=== PATIENT | female | born 1955 | race Caucasian/White ===

== ENCOUNTER → 2017-09-08 11:08 | Outpatient (CLI) | payer BC, SELFPAY ==
--- NOTE | 2017-09-08 11:23 | EKG12_ITS ---
Test Reason : PRE-OP Blood Pressure : / mmHG Vent. Rate : 060 BPM Atrial Rate : 060 BPM P-R Int : 164 ms QRS Dur : 074 ms QT Int : 396 ms P-R-T Axes : 071 -30 033 degrees QTc Int : 396 ms Normal sinus rhythm Left axis deviation Inferior infarct , age undetermined Abnormal ECG Confirmed by BIGG DYKES, FAN ([id number]), brands editor ANJALI VILLAGOMEZ ([id number] on 09/09/2017 4:01:26 PM Referred By: Gaurang Ramos Confirmed By:FAN PRIDE MD
[2017-09-08 11:38] LABS: Hemoglobin 13.8 g/dl (12.0-15.0); Mean Corp Hgb Conc 31.4 g/gl (32-36); Mean Corpuscular Hgb 31.6 pg (27.0-32.0); Mean Corpuscular Volume 100.7 fL (81-99); Mean Platelet Vol. 10.6 fl (6.2-12.0); Platelet Count 259 K/mm3 (150-450); RBC Distribution Width CV 13.7 % (11.6-14.6); RBC Distribution Width SD 50.5 fl (35.1-43.9); Red Blood Count 4.37 M/mm3 (4.2-5.4); White Blood Count 7.5 K/mm3 (4.4-11.0)
[2017-09-08 11:40] LABS: Scan Indicated on CBC? Y/N NO
[2017-09-08 11:59] LABS: Anion Gap 6 (5-15); BUN 9 mg/dL (7-18); BUN/Creat Ratio 12.5 RATIO (10-20); Calcium,Total 9.3 mg/dL (8.5-10.1); Chloride 105 mmol/L (98-107); Creatinine, Serum 0.72 mg/dL (0.55-1.02); EST Glomerular Filtration Rate 87 mL/min (>60); Est Glom Filt Rate - Afr Amer 106 mL/min (>60); Glucose 94 mg/dL (74-106); Potassium 4.3 mmol/L (3.5-5.1); Sodium Level 141 mmol/L (136-145)
== END ==
PROVIDERS: Family Provider Family Medicine; PCP Family Medicine; Visit Provider Orthopaedic Surgery
DX: Z01.810 Encounter for preprocedural cardiovascular examination (principal); Z01.818 Encounter for other preprocedural examination
CPT/HCPCS: 36415; 80048; 85027; 93005

== ENCOUNTER 2017-10-30 16:44 | Emergency (ER) | payer BC, SELFPAY ==
[2017-10-30 16:45] VITALS: BP 120/80; PULSE 95; RESP 14; TEMP 36.1; O2SAT 96; BMI 29.1
--- NOTE | 2017-10-30 17:03 | EKG12_ITS ---
Test Reason : PALP Blood Pressure : / mmHG Vent. Rate : 090 BPM Atrial Rate : 090 BPM P-R Int : 166 ms QRS Dur : 074 ms QT Int : 362 ms P-R-T Axes : 075 -34 054 degrees QTc Int : 442 ms Normal sinus rhythm Left axis deviation Inferior infarct , age undetermined Abnormal ECG Confirmed by BIGG DYKES, FAN ([id number]), newspaper editor managing ANJALI VILLAGOMEZ ([id number]) on 11/02/2017 2:13:20 PM Referred By: ROMAN Confirmed By:FAN PRIDE MD
--- NOTE | 2017-10-30 17:03 | RAD_ITS ---
STUDY: X-RAY CHEST REASON FOR EXAM: Female, 61 years old. Chest pain TECHNIQUE: PA and lateral views of the chest. COMPARISON: None. FINDINGS: The lungs are clear and expanded. There is no demonstrated pleural abnormality. Normal size heart. Normal mediastinum and kirsten. Normal visualized pulmonary arteries. Normal visualized aortic arch and descending thoracic aorta. Normal visualized thoracic spine. Normal visualized ribs, clavicles, and shoulders. There is no demonstrated abnormality of the visualized soft tissue structures of the upper abdomen. RAD/Chest PA and Lateral IMPRESSION: Normal x-ray examination of the chest. Electronically Signed: Yayo Otto DO at 17:40 EDT Tel , Service support ,
[2017-10-30] MEDS: Aspirin 81 MG TAB.CHEW 324 MG PO (17:11)
[2017-10-30 17:32] LABS: Absolute Neutrophil Count 5.5 X10^3/uL (2.0-7.7); Basophil# 0.04 X10^3/uL; Basophil% 0.5 % (0-1); Eosinophil# 0.19 X10^3/uL; Eosinophils% 2.5 % (0-5); Hematocrit 45.1 % (37-47); Hemoglobin 14.6 g/dl (12.0-15.0); Lymphocyte % 20.8 % (19-41); Mean Corp Hgb Conc 32.4 g/gl (32-36); Mean Corpuscular Hgb 31.8 pg (27.0-32.0); Mean Corpuscular Volume 98.3 fL (81-99); Mean Platelet Vol. 11.2 fl (6.2-12.0); Monocyte# 0.38 X10^3/uL; Monocyte% 4.9 % (0-10); Neutrophil # 5.48 X10^3/uL (2.7-7.7); Platelet Count 242 K/mm3 (150-450); RBC Distribution Width CV 13.2 % (11.6-14.6); RBC Distribution Width SD 47.2 fl (35.1-43.9); Red Blood Count 4.59 M/mm3 (4.2-5.4); White Blood Count 7.7 K/mm3 (4.4-11.0)
[2017-10-30 17:35] LABS: POSITIVE COUNT NO; POSITIVE DIFFERENTIAL NO; POSITIVE MORPHOLOGY NO
[2017-10-30 17:56] LABS: Anion Gap 11 (5-15); BUN 8 mg/dL (7-18); BUN/Creat Ratio 11.7 RATIO (10-20); Calcium,Total 9.7 mg/dL (8.5-10.1); Chloride 105 mmol/L (98-107); Creatinine, Serum 0.68 mg/dL (0.55-1.02); EST Glomerular Filtration Rate 92 mL/min (>60); Est Glom Filt Rate - Afr Amer 112 mL/min (>60); Estimated Creatinine Clearance 67.84 ml/min; Glucose 86 mg/dL (74-106); Sodium Level 139 mmol/L (136-145)
--- NOTE | 2017-10-30 18:25 | ED.VISSUMM ---
- ER Visit Summary Date of Service: 10/30/17 Chief Complaint: Dizzy History of Present Illness: The patient is a 61 F who presents with dizziness. She states it initially began about 1 hour ago. It lasted 45 minutes and then resolved. She describes this as near syncope. She has a sensation of her heart racing. She used a blood pressure cuff at home and her heart rate reading was in the 180s. This then resolved on its own about the time of presentation here to the emergency department. The patient does have a history of supraventricular tachycardia. She had associated chest tightness and shortness of breath during this episode but this has since resolved. She has a history of SVT which has converted with adenosine but has also had a previous [place] with a single stent to the right coronary artery. Physical Examination: Afebrile vitals are stable Moist mucous members Heart regular rate and rhythm Lungs are clear Abdomen soft 2+ symmetric radial pulses Test Results: EKG shows normal sinus rhythm at a rate of 90. Laboratory studies including troponin unremarkable. Chest x-ray normal. Emergency Department Course and Treatment: Patient's workup is unremarkable here she has remained in normal sinus rhythm during cardiac monitoring. She did have a heart cath in June of this year which showed mild irregularities and a patent stent. Did speak to Dr. Rios who felt the patient could be safely discharged home to follow-up as an outpatient. We will increase her metoprolol from 12-1/2 mg twice daily to 25 mg twice daily. Patient understands return for new or worsening symptoms and was instructed on specific signs and symptoms to monitor for and was discharged home. Treatment Plan: [] Disposition: Discharge Impression: Palpitations Chest pain This note was generated with [employer] dictation software. It may contain incorrect words, spelling, and punctuation that were not noted in review of the chart prior to signing ED Disposition - Plan for ED Patient: Chief Complaint: Palpitations Referrals: Bonifacio Loya MD [Primary Care Provider] -
--- NOTE | 2017-10-30 18:29 | ED.DCSUM_ITS ---
- ER Visit Summary Date of Service: 10/30/17 Chief Complaint: Dizzy History of Present Illness: The patient is a 61 F who presents with dizziness. She states it initially began about 1 hour ago. It lasted 45 minutes and then resolved. She describes this as near syncope. She has a sensation of her heart racing. She used a blood pressure cuff at home and her heart rate reading was in the 180s. This then resolved on its own about the time of presentation here to the emergency department. The patient does have a history of supraventricular tachycardia. She had associated chest tightness and shortness of breath during this episode but this has since resolved. She has a history of SVT which has converted with adenosine but has also had a previous [place] with a single stent to the right coronary artery. Physical Examination: Afebrile vitals are stable Moist mucous members Heart regular rate and rhythm Lungs are clear Abdomen soft 2+ symmetric radial pulses Test Results: EKG shows normal sinus rhythm at a rate of 90. Laboratory studies including troponin unremarkable. Chest x-ray normal. Emergency Department Course and Treatment: Patient's workup is unremarkable here she has remained in normal sinus rhythm during cardiac monitoring. She did have a heart cath in June of this year which showed mild irregularities and a patent stent. Did speak to Dr. Rios who felt the patient could be safely discharged home to follow-up as an outpatient. We will increase her metoprolol from 12-1/2 mg twice daily to 25 mg twice daily. Patient understands return for new or worsening symptoms and was instructed on specific signs and symptoms to monitor for and was discharged home. Treatment Plan: [] Disposition: Discharge Impression: Palpitations Chest pain This note was generated with [employer] dictation software. It may contain incorrect words, spelling, and punctuation that were not noted in review of the chart prior to signing ED Disposition - Plan for ED Patient: Chief Complaint: Palpitations Referrals: Bonifacio Loya MD [Primary Care Provider] -
--- NOTE | 2017-10-30 18:29 | ED.DEP ---
ED Disposition - Plan for ED Patient: Chief Complaint: Palpitations Instructions: ED Tachycardia Pat PSVT Referrals: Bonifacio Loya MD [Primary Care Provider] - Jeromy Day MD [STAFF PHYSICIAN] -
[2017-10-30 18:38] VITALS: BP 138/94; PULSE 85; RESP 16; O2SAT 96
== END 2017-10-30 18:38 | disposition home or self-care (01) ==
LOC: ED 17:34
PROVIDERS: Emergency Provider Emergency Medicine; Family Provider Family Medicine; PCP Family Medicine
DX: R00.2 Palpitations (principal); R07.9 Chest pain, unspecified; I25.10 Atherosclerotic heart disease of native coronary artery without angina pectoris; I10 Essential (primary) hypertension; I47.1 Supraventricular tachycardia; I25.2 Old myocardial infarction; Z79.82 Long term (current) use of aspirin; Z79.02 Long term (current) use of antithrombotics/antiplatelets; Z79.899 Other long term (current) drug therapy
CPT/HCPCS: 71046; 80048; 84484; 85025; 93005; 99285

== ENCOUNTER → 2017-12-07 10:23 | Outpatient (CLI) | payer BC, SELFPAY ==
--- NOTE | 2017-12-07 10:23 | DT_ITS ---
This patient was seen during an EMR downtime November 30, 2017 - December 07, 2017. This patient may have a combination of paper and electronic documentation or all paper documentation. All documentation is viewable within the e-chart portion of [employer] for each patient visit.
--- NOTE | 2017-12-07 10:23 | DT_ITS ---
This patient was seen during an EMR downtime November 30, 2017 - December 07, 2017. This patient may have a combination of paper and electronic documentation or all paper documentation. All documentation is viewable within the e-chart portion of [employer] for each patient visit.
[2017-12-07 10:50] LABS: Absolute Lymphocyte Count 1.59 X10^3/ul (0.83-4.51); Absolute Neutrophil Count 4.2 X10^3/uL (2.0-7.7); Basophil# 0.03 X10^3/uL; Basophil% 0.5 % (0-1); Hematocrit 41.6 % (37-47); Hemoglobin 13.4 g/dl (12.0-15.0); Lymphocyte # 1.59 X10^3/ul (4.0); Lymphocyte % 23.9 % (19-41); Mean Corp Hgb Conc 32.2 g/gl (32-36); Mean Corpuscular Hgb 32.4 pg (27.0-32.0); Mean Corpuscular Volume 100.7 fL (81-99); Mean Platelet Vol. 10.7 fl (6.2-12.0); Monocyte# 0.38 X10^3/uL; Monocyte% 5.7 % (0-10); Neutrophil # 4.22 X10^3/uL (2.7-7.7); Neutrophil % 63.6 % (47-70); POSITIVE COUNT NO; POSITIVE DIFFERENTIAL NO; POSITIVE MORPHOLOGY NO; Platelet Count 217 K/mm3 (150-450); RBC Distribution Width SD 47.4 fl (35.1-43.9); Red Blood Count 4.13 M/mm3 (4.2-5.4); White Blood Count 6.6 K/mm3 (4.4-11.0)
[2017-12-07 11:16] LABS: ALB/GLOB Ratio 1.1 RATIO (0.9-2.4); AST(SGOT) 23 U/L (15-37); Alanine Aminotransfer ALT/SGPT 34 U/L (13-56); Albumin, Serum 3.9 g/dL (3.2-5.0); Alkaline Phosphatase 115 U/L (45-117); Anion Gap 5 (5-15); BUN 8 mg/dL (7-18); BUN/Creat Ratio 11.7 RATIO (10-20); Bilirubin, Direct 0.19 mg/dL (0.00-0.30); Chloride 108 mmol/L (98-107); Cholesterol 140 mg/dL (200); Creatinine, Serum 0.68 mg/dL (0.55-1.02); EST Glomerular Filtration Rate 92 mL/min (>60); Est Glom Filt Rate - Afr Amer 112 mL/min (>60); Globulin 3.5 g/dL (2.2-4.2); Glucose 99 mg/dL (74-106); High Density Lipoprotein 63 mg/dL; Potassium 4.2 mmol/L (3.5-5.1); Protein, Total 7.4 g/dL (6.4-8.2); Sodium Level 141 mmol/L (136-145); Triglycerides 103 mg/dL; Very Low Density Lipoprotein 21 mg/dL (5-40)
== END ==
PROVIDERS: Family Provider Family Medicine; PCP Family Medicine; Visit Provider Internal Medicine Cardiovascular Disease
DX: I25.10 Atherosclerotic heart disease of native coronary artery without angina pectoris (principal)
CPT/HCPCS: 36415; 80053; 80061; 82248; 85025

== ENCOUNTER → 2018-03-25 06:55 | Outpatient (CLI) | payer BC, SELFPAY ==
--- NOTE | 2018-03-25 09:43 | STRESSREP_ITS ---
Stress Test Report Date: 03/25/2018 Procedure: Exercise tolerance test/imaging study Indications: Chest pain my: CAD; PCI Consent: Per the patient Procedure: The patient exercised on a Steven protocol for 6 minutes completing Stage II achieving a peak heart rate of 146 bpm (92 % predicted maximal heart rate) with a peak blood pressure 140/80 mmHg and a peak MET capacity of 7 METs. The baseline ECG demonstrated normal sinus rhythm. The peak exercise ECG demonstrated no obvious ECG changes. There was a rare PVC during pretest and during exercise. The functional capacity was considered average. There was dyspnea associated with vague chest discomfort during exercise with spontaneous resolution in recovery. The examination was discontinued secondary to dyspnea. Impression: 1. Technically adequate (percent predicted maximal heart rate greater than 85%) exercise tolerance test 2. Peak exercise ECG with no obvious ECG change 3. There was a rare PVC during pretest and during exercise. 4. Nuclear images pending Myocardial perfusion imaging study: Technique: The patient was injected with 11.4 mCi of technetium 99m Cardiolite and sub sequently rest SPECT Cardiolite nuclear imaging was obtained in the horizontal long, vertical long, and short axis views. The patient exercised on a Steven protocol for 6 minutes completing Stage II achieving a peak heart rate of 146 bpm (92 % predicted maximal heart rate) with a peak blood pressure 140/80 mmHg and a peak MET capacity of 7 METs. The patient was injected with 33.2 mCi of technetium 99m Cardiolite and subsequently stress SPECT Cardiolite nuclear imaging was obtained in the horizontal long, vertical long, and short axis views. A gated Cardiolite study at peak stress was obtained. Interpretation: Rest and stress SPECT Cardiolite nuclear imaging status post realignment, normalization, and attenuation correction, demonstrates the appearance of extracardiac/gastrointestinal tracer uptake near the inferior segments. Both pre-attenuation and post attenuation images demonstrate an area of diminished tracer uptake in portions of the distal anterolateral segments at rest which appears to improve/normalize following stress. There are no myocardial perfusion deficits noted on the stress polar map images. There is end systolic thickening and brightening. The gated Cardiolite study demonstrates myocardial thickening and inward wall motion. The reported LVEF is 97 %. Impression: 1. Rest and stress SPECT Cardiolite nuclear imaging demonstrate extracardiac/gastrointestinal tracer uptake near the inferior segments and resting myocardial perfusion changes which appear to improve/normalize following stress appearing compatible shifting soft tissue attenuation/artifact with no myocardial perfusion changes considered diagnostic for associated stress-induced myocardial ischemia. 2. The gated Cardiolite study reports an LVEF of 97 %. This note was generated with [employer] software. It may contain incorrect words, spelling, and punctuation that were not noted in checking the note before signing.
== END ==
PROVIDERS: Family Provider Family Medicine; PCP Family Medicine; Referring Provider Internal Medicine Cardiovascular Disease; Visit Provider Internal Medicine Cardiovascular Disease
DX: R07.9 Chest pain, unspecified (principal); I25.10 Atherosclerotic heart disease of native coronary artery without angina pectoris; Z95.5 Presence of coronary angioplasty implant and graft
CPT/HCPCS: 78452; 93017; A9500; A4216

== ENCOUNTER 2018-12-09 17:45 | Emergency (ER) | payer BC, SELFPAY ==
[2018-12-09] VITALS (7 sets, daily range): BP systolic 122–161; BP diastolic 73–105; PULSE 61–78; RESP 13–16; TEMP 36.7; O2SAT 96–100; BMI 31.6
--- NOTE | 2018-12-09 18:09 | EKG12_ITS ---
Test Reason : CP Blood Pressure : / mmHG Vent. Rate : 073 BPM Atrial Rate : 073 BPM P-R Int : 174 ms QRS Dur : 078 ms QT Int : 390 ms P-R-T Axes : 076 -32 046 degrees QTc Int : 429 ms Normal sinus rhythm Left axis deviation Inferior infarct (cited on or before 08-SEP-2017) Abnormal ECG Confirmed by LAURENT PULLIAM ([id number]), editor city PATRICIA SAUNDERS ([id number]) on 12/13/2018 1:25:42 PM Referred By: KIMI/KAIT Confirmed By:JELANI PULLIAM
--- NOTE | 2018-12-09 18:10 | RAD_ITS ---
STUDY: X-RAY CHEST REASON FOR EXAM: Female, 63 years old. Substernal chest pain TECHNIQUE: Single AP portable view of the chest. COMPARISON: 10/30/2017 FINDINGS: EKG leads overlie the chest The lungs are clear and expanded. There is no demonstrated pleural abnormality. Normal size heart. Normal mediastinum and kirsten. Normal visualized pulmonary arteries. Normal visualized aortic arch and descending thoracic aorta. Normal visualized thoracic spine. Normal visualized ribs, clavicles, and shoulders. There is no demonstrated abnormality of the visualized soft tissue structures of the upper abdomen. RAD/Chest 1 View (Portable) IMPRESSION: Normal x-ray examination of the chest. Electronically Signed: Krish Wolf MD at 18:25 EDT , Service support ,
[2018-12-09 18:26] LABS: Absolute Neutrophil Count 4.4 X10^3/uL (2.0-7.7); Basophil# 0.03 X10^3/uL; Basophil% 0.4 % (0-1); Eosinophil# 0.22 X10^3/uL; Eosinophils% 2.8 % (0-5); Hematocrit 44.5 % (37-47); Hemoglobin 14.7 g/dl (12.0-15.0); Lymphocyte % 33.1 % (19-41); Mean Corpuscular Volume 96.7 fL (81-99); Mean Platelet Vol. 11.3 fl (6.2-12.0); Monocyte# 0.59 X10^3/uL; Monocyte% 7.5 % (0-10); Neutrophil # 4.39 X10^3/uL (2.7-7.7); Neutrophil % 55.8 % (47-70); POSITIVE COUNT NO; POSITIVE DIFFERENTIAL NO; POSITIVE MORPHOLOGY NO; Platelet Count 224 K/mm3 (150-450); RBC Distribution Width CV 13.1 % (11.6-14.6); RBC Distribution Width SD 45.2 fl (35.1-43.9); White Blood Count 7.9 K/mm3 (4.4-11.0)
[2018-12-09 18:27] LABS: Prothrombin Time (Protime)PT. 12.5 SECONDS (11.7-14.9)
[2018-12-09] MEDS: Aspirin 81 MG TAB.CHEW 243 MG PO (18:34)
[2018-12-09] MEDS: 0.9% Normal Saline 1,000 ML 150 ML IV (18:35)
[2018-12-09 18:38] LABS: Anion Gap 4 (5-15); BUN 9 mg/dL (7-18); BUN/Creat Ratio 11.6 RATIO (10-20); Calcium,Total 9.2 mg/dL (8.5-10.1); Chloride 106 mmol/L (98-107); Creatinine, Serum 0.78 mg/dL (0.55-1.02); EST Glomerular Filtration Rate 80 mL/min (>60); Est Glom Filt Rate - Afr Amer 96 mL/min (>60); Estimated Creatinine Clearance 57.63 ml/min; Glucose 102 mg/dL (74-106); Potassium 3.6 mmol/L (3.5-5.1); Sodium Level 135 mmol/L (136-145)
--- NOTE | 2018-12-09 21:00 | EKG12_ITS ---
Test Reason : REPEAT Blood Pressure : / mmHG Vent. Rate : 062 BPM Atrial Rate : 062 BPM P-R Int : 180 ms QRS Dur : 076 ms QT Int : 428 ms P-R-T Axes : 074 -30 024 degrees QTc Int : 434 ms Normal sinus rhythm Left axis deviation Inferior infarct , age undetermined Abnormal ECG Confirmed by LAURENT PULLIAM ([id number]), editor in chief newspaper PATRICIA SAUNDERS ([id number]) on 12/13/2018 1:25:08 PM Referred By: Confirmed By:JELANI PULLIAM
--- NOTE | 2018-12-09 22:01 | ED.VISSUMM ---
- ER Visit Summary Date of Service: 12/09/18 Chief Complaint: Chest pain History of Present Illness: The patient is a 63 F with history of OR in 2017 with a stent to the RCA. Patient still on Brilinta. Patient reports having intermittent chest tightness since she had her OR. She had 2 stress test and one cath since her heart attack that did not show any further significant disease. Patient states tonight after watching a movie her chest seem more tight than normal. It is across the center of her chest. She reported slightly more shortness of breath than normal. She did not break out in a sweat. Physical Examination: Blood pressure is 161/88, otherwise vitals normal. Patient sitting upright in bed no acute distress. Head and neck examination normal. Heart is regular rate and rhythm. Lung sounds are clear. Abdomen is soft nontender. Lower extremity examination is unremarkable with no significant edema. Test Results: EKG is sinus at 73 with no acute ischemia. Portable chest x-ray unremarkable. CBC and chemistry studies normal. Troponin is less than 0.015. Emergency Department Course and Treatment: Patient was given 3 additional baby aspirin on arrival as she is only taken one this morning. On review of records patient had a nuclear stress test in February 2018 here that was unremarkable. She had a heart cath in June 2017 that showed mild irregularities only. Test results were discussed with the patient. We used shared decision-making to decide on 3-hour repeat EKG and troponin. Repeat EKG is unchanged and repeat troponin remains less than 0.015. At this time patient is comfortable with discharge to home and will follow with her hearing aid mechanic. Treatment Plan: [] Disposition: Discharge Impression: Chest pain This note was generated with [employer] dictation software. It may contain incorrect words, spelling, and punctuation that were not noted in review of the chart prior to signing ED Disposition - Plan for ED Patient: Disposition: Home or Assisted Living Instructions: ED Chest Pain Atypical Unkn Cause Referrals: Jany Gilliam DO [Primary Care Provider] - Jeromy Day MD [STAFF PHYSICIAN] - As soon as possible
--- NOTE | 2018-12-09 22:04 | ED.DCSUM_ITS ---
- ER Visit Summary Date of Service: 12/09/18 Chief Complaint: Chest pain History of Present Illness: The patient is a 63 F with history of [place] in 2017 with a stent to the RCA. Patient still on Brilinta. Patient reports having intermittent chest tightness since she had her IL. She had 2 stress test and one cath since her heart attack that did not show any further significant disease. Patient states tonight after watching a movie her chest seem more tight than normal. It is across the center of her chest. She reported slightly more shortness of breath than normal. She did not break out in a sweat. Physical Examination: Blood pressure is 161/88, otherwise vitals normal. Patient sitting upright in bed no acute distress. Head and neck examination normal. Heart is regular rate and rhythm. Lung sounds are clear. Abdomen is soft nontender. Lower extremity examination is unremarkable with no significant edema. Test Results: EKG is sinus at 73 with no acute ischemia. Portable chest x-ray unremarkable. CBC and chemistry studies normal. Troponin is less than 0.015. Emergency Department Course and Treatment: Patient was given 3 additional baby aspirin on arrival as she is only taken one this morning. On review of records patient had a nuclear stress test in February 2018 here that was unremarkable. She had a heart cath in June 2017 that showed mild irregularities only. Test results were discussed with the patient. We used shared decision-making to decide on 3-hour repeat EKG and troponin. Repeat EKG is unchanged and repeat troponin remains less than 0.015. At this time patient is comfortable with discharge to home and will follow with her spring assembler. Treatment Plan: [] Disposition: Discharge Impression: Chest pain This note was generated with [employer] dictation software. It may contain incorrect words, spelling, and punctuation that were not noted in review of the chart prior to signing ED Disposition - Plan for ED Patient: Disposition: Home or Assisted Living Instructions: ED Chest Pain Atypical Unkn Cause Referrals: Jany Gilliam DO [Primary Care Provider] - Jeromy Day MD [STAFF PHYSICIAN] - As soon as possible
== END 2018-12-09 22:07 | disposition home or self-care (01) ==
PROVIDERS: Emergency Provider Emergency Medicine; Family Provider Family Medicine; PCP Family Medicine
DX: R07.9 Chest pain, unspecified (principal); I25.10 Atherosclerotic heart disease of native coronary artery without angina pectoris; I10 Essential (primary) hypertension; G47.33 Obstructive sleep apnea (adult) (pediatric); K21.9 Gastro-esophageal reflux disease without esophagitis; Z79.02 Long term (current) use of antithrombotics/antiplatelets; Z79.82 Long term (current) use of aspirin; Z79.899 Other long term (current) drug therapy; I25.2 Old myocardial infarction; Z87.891 Personal history of nicotine dependence; Z95.5 Presence of coronary angioplasty implant and graft
CPT/HCPCS: 71045; 80048; 84484; 85025; 85610; 93005; 96360; 96361; 99284; J7030; A4216

== ENCOUNTER 2020-09-13 15:06 | Outpatient (RCR) | payer MEDICARE, OTHER, SELFPAY ==
[2020-06-19 11:41] VITALS: BMI 32.0
[2020-09-13] MEDS: COVID-19 VACC, MRNA(PFIZER)/PF 30 MCG/0.3 ML SYRINGE IM (13:28)
[2020-10-04] MEDS: COVID-19 VACC, MRNA(PFIZER)/PF 30 MCG/0.3 ML SYRINGE IM (13:19)
== END 2020-09-13 23:59 ==
LOC: IMMUN 15:06
PROVIDERS: PCP Family Medicine; Visit Provider Family Medicine
DX: Z23 Encounter for immunization (principal)
CPT/HCPCS: 0001A; 0002A; 91300

== ENCOUNTER → 2021-02-25 14:34 | Outpatient (CLI) | payer MEDICARE, OTHER, SELFPAY ==
[2021-02-25 18:04] LABS: Hemoglobin 14.1 g/dL (12.0-15.0); Mean Corp Hgb Conc 32.8 g/dL (32-36); Mean Corpuscular Hgb 35.3 pg (27.0-32.0); Mean Corpuscular Volume 107.5 fL (81-99); Mean Platelet Vol. 10.9 fl (6.2-12.0); Platelet Count 199 K/mm3 (150-450); RBC Distribution Width CV 12.8 % (11.6-14.6); RBC Distribution Width SD 50.8 fl (35.1-43.9); White Blood Count 6.6 K/mm3 (4.4-11.0)
[2021-02-25 19:05] LABS: AST(SGOT) 224 U/L (15-37); Alanine Aminotransfer ALT/SGPT 101 U/L (13-56); Albumin, Serum 3.8 g/dL (3.2-5.0); Alkaline Phosphatase 144 U/L (45-117); Bilirubin, Direct 0.37 mg/dL (0.00-0.30); GGTP 896 U/L (5-55); Globulin 4.1 g/dL (2.2-4.2); Protein, Total 7.9 g/dL (6.4-8.2)
[2021-02-26 09:21] LABS: Hepatitis B Surface Antigen Non-Reactive (Nonreactive); Hepatitis C Antibody Non-Reactive (Nonreactive)
[2021-02-27 16:36] LABS: ANTINUCLEAR ANTIBODIES DIRECT Negative (Negative); Anti-Smooth Muscle ABS 18 Units (0-19)
== END ==
PROVIDERS: PCP Family Medicine; Referring Provider Internal Medicine Gastroenterology; Visit Provider Internal Medicine Gastroenterology
DX: R19.7 Diarrhea, unspecified (principal); K75.9 Inflammatory liver disease, unspecified
CPT/HCPCS: 36415; 80076; 82977; 83516; 85027; 86038; 86140; 86803; 87340

== ENCOUNTER → 2021-03-13 08:41 | Outpatient (CLI) | payer MEDICARE, OTHER, SELFPAY ==
--- NOTE | 2021-03-13 08:44 | US_ITS ---
STUDY: ABDOMINAL ULTRASOUND - RIGHT UPPER QUADRANT REASON FOR VISIT: Female, 65 years old FATTY LIVER TECHNIQUE: Ultrasound evaluation of the right upper quadrant was performed with real-time and static soliz-scale imaging. TECHNICAL QUALITY: Adequate. COMPARISON: None. FINDINGS: Liver: The liver measures 17.1 cm. There is increased echogenicity consistent with fatty infiltration. The bile ducts are within normal limits. There is hepatic color flow. The direction of portal flow is hepatopetal. There is no demonstrated mass lesion. Gallbladder: The patient is status post cholecystectomy. Common Bile Duct (C.B.D.): The common bile duct measures 5 mm. Pancreas: Normal size of the head, body and tail of the pancreas. There is normal echogenicity of the pancreas. There is no demonstrated pancreatic mass or cyst. Right Kidney: Normal size of the right kidney. The right kidney measures 10.4 cm x 5 cm x 4 cm. Normal renal cortex. The right cortex measures 1.5 cm. There is no demonstrated renal mass or cyst. There is no right hydronephrosis. IMPRESSION: Fatty infiltration of the liver. Status post cholecystectomy. Electronically Signed: Rob Russo MD at 13:59 EDT , Service support , STUDY: ABDOMINAL ULTRASOUND - ELASTOGRAPHY REASON FOR VISIT: Female, 65 years old. Fatty infiltration of the liver. TECHNIQUE: Liver stiffness measurements were obtained on a SCRM 85 ultrasound machine using a CA 1-7 probe following the SRU guidelines. 3 measurements were obtained using a 2-D-SWE method. The IQR/M was 10% suggesting a quality data set. TECHNICAL QUALITY: Adequate. COMPARISON: Comparison is made with prior study done earlier in the day. FINDINGS: Liver: There is diffuse fatty infiltration of the liver. Median liver stiffness measured 13 kPa. US/Abdomen Limited IMPRESSION: Liver stiffness measures 13 kPa compatible with F3 Metavir score. Electronically Signed: Rob Russo MD at 14:03 EDT , Service support ,
== END ==
PROVIDERS: PCP Family Medicine; Referring Provider Internal Medicine Gastroenterology; Visit Provider Internal Medicine Gastroenterology
DX: K76.0 Fatty (change of) liver, not elsewhere classified (principal)
CPT/HCPCS: 76705; 76981

== ENCOUNTER 2021-07-12 14:20 | Outpatient (CLI) | payer MEDICARE, OTHER, SELFPAY ==
[2021-07-12 17:32] LABS: Absolute Lymphocyte Count 1.35 X10^3/uL (0.83-4.51); Absolute Neutrophil Count 6.6 X10^3/uL (2.0-7.7); Basophil# 0.04 X10^3/uL; Basophil% 0.5 % (0-1); Eosinophil# 0.07 X10^3/uL; Eosinophils% 0.8 % (0-5); Hematocrit 43.4 % (37-47); Hemoglobin 13.7 g/dL (12.0-15.0); Lymphocyte # 1.35 X10^3/ul (0.83-4.51); Lymphocyte % 15.8 % (19-41); Mean Corp Hgb Conc 31.6 g/dL (32-36); Mean Corpuscular Hgb 34.8 pg (27.0-32.0); Mean Corpuscular Volume 110.2 fL (81-99); Mean Platelet Vol. 11.7 fl (6.2-12.0); Monocyte# 0.45 X10^3/uL; Monocyte% 5.3 % (0-10); NRBC Flagged by Analyzer 0 % (0-5); Neutrophil % 77.1 % (47-70); Platelet Count 312 K/mm3 (150-450); RBC Distribution Width CV 13.3 % (11.6-14.6); RBC Distribution Width SD 55.4 fl (35.1-43.9); Red Blood Count 3.94 M/mm3 (4.2-5.4); White Blood Count 8.6 K/mm3 (4.4-11.0)
[2021-07-12 17:43] LABS: ALB/GLOB Ratio 0.8 RATIO (0.9-2.4); AST(SGOT) 74 U/L (15-37); Alanine Aminotransfer ALT/SGPT 67 U/L (13-56); Albumin, Serum 3.4 g/dL (3.2-5.0); Alkaline Phosphatase 224 U/L (45-117); Anion Gap 8 (5-15); BUN 5 mg/dL (7-18); BUN/Creat Ratio 11.3 RATIO (10-20); Calcium,Total 9.9 mg/dL (8.5-10.1); Chloride 102 mmol/L (98-107); Creatinine, Serum 0.44 mg/dL (0.55-1.02); EST Glomerular Filtration Rate 151 mL/min (>60); Est Glom Filt Rate - Afr Amer 183 mL/min (>60); Globulin 4.4 g/dL (2.2-4.2); Glucose 92 mg/dL (74-106); Protein, Total 7.8 g/dL (6.4-8.2); Rheumatoid Factor < 10.0 IU/mL (<15); Sodium Level 137 mmol/L (136-145)
[2021-07-15 09:29] LABS: Hepatitis B Surface Antibody Non-Reactive; Hepatitis B Surface Antigen Non-Reactive (Nonreactive); Hepatitis C Antibody Non-Reactive (Nonreactive)
[2021-07-17 00:07] LABS: QNTFERON TB Mitogen Value 4.71 IU/mL (.); QNTFERON TB Nil Value 0 IU/mL (.); QNTFERON TB1+ Ag Value 0 IU/mL (.); QNTFERON TB2+ Ag Value 0 IU/mL (.)
[2021-07-17 08:28] LABS: CCP IgG Antibodies 20 units (0-19); QNTIFERON TB Positive Criteria Negative (Negative)
== END 2021-07-12 23:59 | disposition short-term general hospital (02) ==
LOC: MTLAB 14:22
PROVIDERS: PCP Family Medicine; Referring Provider Internal Medicine Rheumatology; Visit Provider Internal Medicine Rheumatology
DX: M05.79 Rheumatoid arthritis with rheumatoid factor of multiple sites without organ or systems involvement (principal); M79.7 Fibromyalgia; I25.10 Atherosclerotic heart disease of native coronary artery without angina pectoris; K21.9 Gastro-esophageal reflux disease without esophagitis; E78.5 Hyperlipidemia, unspecified; F32.A Depression, unspecified; H93.13 Tinnitus, bilateral; Z95.5 Presence of coronary angioplasty implant and graft
CPT/HCPCS: 36415; 80053; 85025; 86200; 86431; 86480; 86706; 86803; 87340

== ENCOUNTER 2021-08-13 11:14 | Outpatient (CLI) | payer MEDICARE, OTHER, SELFPAY ==
--- NOTE | 2021-08-13 11:18 | RAD_ITS ---
STUDY: X-RAY CHEST REASON FOR EXAM: Female, 65 years old. Fever and cough TECHNIQUE: PA and lateral views of the chest. COMPARISON: None. FINDINGS: The lungs are clear and expanded. There is no demonstrated pleural abnormality. Normal size heart. Normal mediastinum and kirsten. Normal visualized pulmonary arteries. Normal visualized aortic arch and descending thoracic aorta. Normal visualized thoracic spine. There is degenerative osteoarthritis of the bilateral shoulders. There is no demonstrated abnormality of the visualized soft tissue structures of the upper abdomen. RAD/Chest PA and Lateral IMPRESSION: No acute pulmonary process Electronically Signed: Krish Wolf MD at 17:31 EST ,
== END 2021-08-13 23:59 | disposition home or self-care (01) ==
LOC: MTRAD 11:17
PROVIDERS: PCP Family Medicine; Referring Provider Internal Medicine Rheumatology; Visit Provider Internal Medicine Rheumatology
DX: M05.79 Rheumatoid arthritis with rheumatoid factor of multiple sites without organ or systems involvement (principal); M79.7 Fibromyalgia; I25.10 Atherosclerotic heart disease of native coronary artery without angina pectoris; K21.9 Gastro-esophageal reflux disease without esophagitis; E78.5 Hyperlipidemia, unspecified; F32.A Depression, unspecified; H93.13 Tinnitus, bilateral; K76.0 Fatty (change of) liver, not elsewhere classified
CPT/HCPCS: 71046

== ENCOUNTER 2021-10-16 13:15 | Outpatient (CLI) | payer MEDICARE, OTHER, SELFPAY ==
--- NOTE | 2021-10-16 15:15 | NEURO_ITS ---
NCS and/or EMG Patient Report Ordering Doctor: Robbin Mcgregor DATE OF SERVICE: 10/16/21 Laurence presents for electrodiagnostic testing of the upper limbs. She complains of numbness and tingling in the hands, primarily the fingertips. She reports a history of rheumatoid arthritis. Electrodiagnostic findings: Right median motor nerve demonstrates normal distal latency, amplitude with borderline reduced conduction velocity. Left median motor nerve demonstrates normal distal latency and amplitude with borderline reduced conduction velocity. Ulnar motor responses within normal limits bilaterally. Normal median and ulnar F waves. Mildly prolonged median sensory latency at the right wrist. Prolonged left median sensory latency at the wrist. Normal median palmar latency bilaterally. Normal ulnar and radial sensory responses. On needle EMG, all muscles tested in the upper limbs showed no evidence of denervation with normal motor unit action potentials. Electrodiagnostic impression: This is an abnormal study in the upper limbs 1. Electrodiagnostic findings are suggestive of bilateral median monon europathy, consistent with a mild bilateral carpal tunnel syndrome.
== END 2021-10-16 23:59 | disposition home or self-care (01) ==
LOC: PSN 13:17
PROVIDERS: PCP Family Medicine; Referring Provider Psychiatry & Neurology Neurology; Visit Provider Psychiatry & Neurology Neurology
DX: G56.03 Carpal tunnel syndrome, bilateral upper limbs (principal); G62.9 Polyneuropathy, unspecified
CPT/HCPCS: 95886; 95913

== ENCOUNTER → 2021-10-28 | Outpatient (CLI) | payer MEDICARE, OTHER, SELFPAY ==
--- NOTE | 2021-10-28 14:03 | NEURO ---
NCS and/or EMG Patient Report Ordering Doctor: Robbin Mcgregor DATE OF SERVICE: 10/28/21 Indication: Bilateral lower extremity numbness that has been present since June 2021. The upper extremities were evaluated previously and were reported separately. Findings: Nerve conduction studies were performed in the right and left lower extremities. The right peroneal motor study recording the extensor digitorum brevis showed a normal amplitude, normal distal latency and normal conduction velocity. No conduction block or focal slowing was present across the fibular neck. The right tibial motor study recording the abductor hallucis brevis showed a normal amplitude, normal distal latency and normal conduction velocity. Right sural sensory response showed a normal amplitude and conduction velocity. Right superficial peroneal sensory response showed a normal amplitude and borderline conduction velocity. Right medial plantar sensory response could not be obtained due to movement artifact. The left peroneal motor study recording the extensor digitorum brevis showed a normal amplitude, normal distal latency and borderline conduction velocity (however, supramaximal stimulation was not achieved). No conduction block or focal slowing was present across the fibular neck. The left tibial motor study recording the abductor hallucis brevis showed a normal amplitude, normal distal latency and normal conduction velocity. Left sural sensory response showed a normal amplitude and conduction velocity. Left superficial peroneal sensory response showed a normal amplitude and borderline conduction velocity. Left medial plantar sensory response could not be obtained due to movement artifact. Needle EMG of the left lower extremity and paraspinal muscles was performed. No denervation was present in any muscle. Activation was limited in the medial gastrocnemius muscle. Motor unit morphology, activation, and recruitment patterns were otherwise normal. Impression: This is a normal study. There is no electrophysiologic evidence of peripheral neuropathy. In addition, there was no electrophysiologic evidence of lumbar radiculopathy in the left lower extremity. Please note: routine nerve conduction studies and needle EMG assess the larger, myelinated motor and sensory fibers. Thus, routine electrodiagnostic studies may be insensitive in detecting a peripheral neuropathy restricted to small fibers alone (i.e., pain, temperature and autonomic fibers). However, most peripheral neuropathies with predominantly small fiber large dysfunction will also involve large fibers to a lesser extent, and will demonstrate abnormalities on electrodiagnostic studies. Thus, clinical correlation is required in the interpretation of this negative electrodiagnostic study if an isolated small fiber neuropathy is considered. Ilia Santacruz D.O. Multi Select Codes Neurology Neurology Interp Codes: 21749-81 Musc test done w/n test comp (interp) and 42275-26 Nrv cndj test 9-10 studies (interp)
== END | disposition home or self-care (01) ==
PROVIDERS: PCP Family Medicine; Referring Provider Psychiatry & Neurology Neurology; Visit Provider Psychiatry & Neurology Neurology
DX: G56.03 Carpal tunnel syndrome, bilateral upper limbs (principal); G62.9 Polyneuropathy, unspecified
CPT/HCPCS: 95886; 95911

== ENCOUNTER 2021-12-20 02:45 | Inpatient (IN) | payer MEDICARE, OTHER, SELFPAY ==
[2021-12-20 02:01] VITALS: BMI 26.6
[2021-12-20 02:24] VITALS: BP 102/60; PULSE 92; RESP 16; TEMP 36.3; O2SAT 93
--- NOTE | 2021-12-20 02:52 | HP.PCM.HOS_ITS ---
HPI - General General Date of Admission: 12/20/21 Date of Service: 12/20/21 Chief Complaint: weight loss, debility HPI Narrative CALIN ANGUIANO, is a 66 F who presents presents with a several month history of unintentional weight loss. Patient has lost roughly 50 pounds. Things have gotten worse over the past couple weeks where the patient is having early satiety eating very little perhaps up to 200 barrie/day and drinking less. Perhaps drinking 20 ounces of water per day. They were concerned and brought the patient to and [facility] emergency room. Patient had lab work and a CAT scan that was concerning for acute pancreatitis and acute kidney injury. They were unable to get the patient admitted to the main campus at [place] or at their local hospital said the patient and her family agreed to go to [place]. Additionally, patient has had increased abdominal distention which has caused her discomfort. Since she has been unwell recently, patient has cut back her alcohol consumption to a few times throughout the week. Previously, patient was drinking 5 large glasses of wine daily. [facility] Medical History Abdominal aortic aneurysm without rupture Acute ST elevation myocardial infarction (STEMI) Alcohol abuse Atherosclerotic heart disease of [place] coronary artery without angina pectoris Bone fracture Breast lump Carpal tunnel syndrome Depression Essential hypertension Fibromyalgia Former smoker Gait instability Gallstone GERD (gastroesophageal reflux disease) Hearing loss, left Hearing loss, right Hearing problem Hx of cataract IBS (irritable bowel syndrome) Liver disease Mixed hyperlipidemia Paroxysmal supraventricular tachycardia Presence of stent in coronary artery (~12/28/16) Rheumatoid arthritis Skin cancer Sleep apnea UTI (urinary tract infection) Home Medications aspirin 81 mg tablet,delayed release 81 mg PO DAILY health maintenance 02/12/17 [History Last Taken 12/19/21] metoprolol tartrate 25 mg tablet 25 mg PO BID blood pressure/heart 02/12/17 [History Last Taken 12/19/21] nitroglycerin 0.4 mg sublingual tablet 0.4 mg sublingual PRN PRN Cardiac/Chest Pain 02/12/17 [History Last Taken Unknown] omeprazole 20 mg capsule,delayed release 20 mg PO DAILY gerd 02/12/17 [History Last Taken 12/19/21] cyclobenzaprine 10 mg tablet 10 mg PO TID 12/12/21 [History Last Taken 12/19/21] duloxetine 30 mg capsule,delayed release 30 mg PO QHS #30 caps 12/12/21 [Rx Last Taken 12/19/21] duloxetine 60 mg capsule,delayed release 60 mg PO QAM #30 caps 12/12/21 [Rx Last Taken 12/19/21] etanercept 25 mg/0.5 mL subcutaneous solution (Enbrel) 25 mg subcut QWEEK 12/12/21 [History Last Taken 12/18/21] left wrist splint #1 ea 12/12/21 [Rx Last Taken Unknown] right wrist splint #1 ea 12/12/21 [Rx Last Taken Unknown] Allergy/AdvReac Type Severity Reaction Status Date / Time naproxen Allergy Unknown Verified 12/20/21 02:15 oxaprozin [From Daypro] Allergy Unknown Verified 12/20/21 02:15 Family History Mother Hypertension Other Heart disease Surgical History H/O lumpectomy History of arthroscopic surgery of shoulder History of carpal tunnel surgery History of cholecystectomy History of coronary artery stent placement History of tonsillectomy History of total hysterectomy Hx of section Hx of total knee replacement Presence of coronary angioplasty implant and graft (~12/28/16) S/P right knee arthroscopy S/P trigger finger release Social History Smoking Status: Former smoker how long ago did patient quit smokin alcohol intake: current alcohol intake frequency: 0-2 drinks per day Alcohol type: wine substance use type: does not use caffeine: Yes Type: coffee Number of servings: 1 what type of physical activity do you participate in: walking and weight russel juan pablo frequency: 3-4 times per week duration: 45-60 minutes/day seatbelt use: always do you feel safe at home: Yes BETH Bennett Patient does have. Periods where she is confused but mostly while she is sleeping she will speak out and say some nonsensical things. But according to her , she also does this while she is sleepy at times. Noticed icterus of her eyes and slight jaundice of her skin. All review of systems were negative except as mentioned above in the history of present illness and the other review of systems. Vital Signs Vital Signs Vital Signs: 12/20/21 02:24 12/20/21 02:01 Temperature 36.3 C L Temperature Source Oral Pulse Rate 92 Respiratory Rate 16 Respiratory Effort Normal Non-Labored Respiratory Depth Normal Respiratory Pattern Normal Blood Pressure 102/60 Blood Pressure Mean 74 Blood Pressure Source Monitor Blood Pressure Position Semi-Fowlers Blood Pressure Location Right Arm Pulse Ox 93 Oxygen Delivery Method Room Air Room Air Weight Weight: 66.2 kg Body Mass Index (BMI) 26.6 Physical Exam Const alert Constitutional Narrative: Cachectic. Appears older than stated age. Stated something about a dog barking while is in the room. General Appearance: cooperative Orientation / Consciousness: confused HEENT normocephalic and head/scalp atraumatic HEENT Narrative: Temporal wasting. Mucous membranes are dry. Eyes Eyes Narrative: No nystagmus. Positive icterus Neck no lymphadenopathy Resp normal respiratory effort, no retractions, no use of accessory muscles and clear to auscultation bilaterally Cardio regular rate, regular rhythm, S1 normal heart sound and S2 normal heart sound GI GI Narrative: Distended. Minimally tender throughout. Normal bowel sounds Extremity normal to inspection and no clubbing, cyanosis or edema Neuro moves all extremities and no focal motor deficits Sensorium / Orientation: awake Results Medical Records Data Attestation: I reviewed the patient's medical records Lab / Micro Data Attestation: I reviewed the patient's lab results. Lab results narrative: Labs from outside hospital: CBC: White count 33.1, hemoglobin 11.4, platelets 280. BMP: Glucose 123, potassium 3.6, creatinine 2.43, min 2.8, alk phos 191, AST 239, ALT 108 Lipase greater than 2250 at the outside facility and lactic acid was 2.4. Ammonia was 12 CAT scan report was not included but when I discussed with the emergency room physician the reports noted pancreatitis, ascites and hepatic steatosis. Assessment & Plan Assessment/Plan (1) Pancreatitis: (2) FAMILIA (acute kidney injury): (3) Leukocytosis: (4) Severe protein-calorie malnutrition: (5) Debility: (6) Delirium: (7) Ascites: PLAN: Plan 1. Acute pancreatitis The lipase level was greater than 2250 which is the high limit at the outside facility Unclear etiology but could be due to alcohol. There is no mention of gallstones on the CAT scan. I did asked that specifically of the emergency room physician before the patient was transferred. Plan: * IV fluids * Check MRCP * Clear liquid diet * Consult gastroenterology. I discussed with Dr. Resendez who will see the patient. 2. Acute kidney injury Creatinine 2.43. Previous creatinine available in our system was 0.44 from July 12 of this year. Etiology is unclear. Could be prerenal or hepatorenal syndrome or some other process. Clinically the patient has dry Plan: * IV fluids * Check urine studies * US renal US * If kidney function gets worse, consider nephrology consult 3. Leukocytosis Unclear etiology Plan * Continue with Pipracil/tazobactam which patient received at the outside emergency room * Check cultures 4. Ascites Etiology is unclear but concerning for possible underlying cirrhosis given the patient's previously high alcohol consumption. Patient's LFTs are slightly elevated though her platelets were normal. Patient had a recent colonoscopy in the past year by Dr. Haddad that was unremarkable. Therefore colon cancer with carcinomatosis is extremely unlikely Plan: * Monitor for now * Cannot rule out the possibility of a paracentesis in the future. Not immediately necessary at this point. * Hold aspirin for now in case paracentesis needed 5. Protein calorie malnutrition Patient has had a marked weight loss over the past several months losing roughly 50 pounds Plan: * Will have nutrition make further recommendations. I am holding off on supple ments at this point time given the pancreatitis and also determining what potential procedures the patient may require in the near future. 6. Delirium Patient was talk about a dog barking while I was in the room when there clearly was no dog barking. was in the room when she said this and did not seem to phase him. He did state that patient has periods where she demonstrates similar at home. Its unclear the significance of this. Evaluate for metabolic etiologies Ammonia was normal at the outside hospital therefore this is not due to hepatic encephalopathy Check head CT 7. CAD History of stents in 2017 Has already completed ticagrelor Aspirin being held for potential procedures 8. VTE prophylaxis: SCDs in anticipation of potential procedures 9. CODE STATUS: Addressed with the patient. Patient wishes to be full CODE STATUS. Charges/Coding Visit Charges Inpatient E&M: 97801 Init Hosp L3
--- NOTE | 2021-12-20 03:10 | US_ITS ---
INDICATION: FAMILIA EXAMINATION: Ultrasound US Kidney(s) complete (eg, kidneys and bladder) TECHNIQUE: Rose scale and color doppler images were obtained of the kidneys. COMPARISON: Abdomen ultrasound from 03/13/2021. CT chest with contrast from 02/25/2017. FINDINGS: RIGHT KIDNEY: 10.5 x 5.2 x 4.2 cm. Normal size and normal parenchyma. No echogenic calculi or hydronephrosis. 1.2 cm parapelvic cyst. No solid lesions. LEFT KIDNEY: 10.9 x 5.0 x 6.0 cm. Normal size and normal parenchyma. No echogenic calculi or hydronephrosis. 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 URINARY BLADDER: Underdistended and difficult to assess but no definite acute findings. OTHER: Trace perihepatic ascites. Stable 1.8 cm splenic calcification. US/Kidney and Bladder IMPRESSION: No acute findings. Electronically Signed: Amauri House, at 9:27 EDT ,
--- NOTE | 2021-12-20 03:10 | MRI_ITS ---
STUDY: MR CHOLANGIOPANCREATOGRAPHY (MRCP) REASON FOR EXAM: Female, 66 years old. PAIN CBD STONES PANCREATITIS pancreatitis TECHNIQUE: Standard MRCP technique was utilized. 3-D postprocessing images were obtained. COMPARISON: 03/13/2021 ultrasound FINDINGS: Bilateral pleural effusions. Bilateral pneumonia. Abdominal ascites. The liver is nodular in appearance. A focal mass is not identified. The finding is consistent for hepatic cirrhosis. There is enlargement and inflammation around the pancreas. There is minimal fluid around the pancreas. This is consistent for acute pancreatitis. Calcification of the spleen. There is T2 hyperintensities of the left kidney. These are consistent for cysts. No follow up required. Gall Bladder: There are surgical clips in the gallbladder fossa consistent with a prior cholecystectomy. Cystic duct: Normal with no demonstrated fixed filling defect. Intrahepatic ducts: Normal visualized intrahepatic ducts with no demonstrated fixed filling defect, dilation or stricture. Common hepatic duct: Normal with no demonstrated fixed filling defect, dilation or stricture. Common bile duct: Normal with no demonstrated fixed filling defect, dilation or stricture. Pancreatic duct: Normal with no demonstrated fixed filling defect, dilation or stricture. MRI/MRCP Abdomen without Contrast IMPRESSION: Bilateral pleural effusions. Bilateral pneumonia. There is hepatic cirrhosis. There is enlargement and inflammation around the pancreas. There is minimal fluid around the pancreas. This is consistent for acute pancreatitis. Abdominal ascites. Electronically Signed: Ky Roe MD at 14:27 EDT ,
--- NOTE | 2021-12-20 03:11 | CT_ITS ---
EXAM: CT HEAD WITHOUT INTRAVENOUS CONTRAST CLINICAL INDICATION: confusion. delirium TECHNIQUE: Multiple axial images were obtained of the head without intravenous contrast. This CT exam was performed using one or more of the following dose reduction techniques: automated exposure control, adjustment of the mA and/or kV according to patient size, and/or use of iterative reconstruction technique. This report was created using [employer] report generation technology. RADIATION DOSE: CTDIvol = 45 mGy, DLP = 779 mGy-cm. COMPARISON: None. FINDINGS: BRAIN AND EXTRA-AXIAL SPACES: Mild generalized atrophy. Mild low density bilaterally in the deep white matter. No intra- or extra-axial hemorrhage. No evidence of acute infarct. No intracranial mass or mass effect. There is preservation of the soliz/white matter interface. Posterior fossa structures are unremarkable. No hydrocephalus. Basal cisterns are patent. BONES/JOINTS: Unremarkable. No discrete lytic or blastic abnormalities. SINUSES: Unremarkable as visualized. Clear. MASTOID AIR CELLS: Unremarkable. Clear. ORBITS: Visualized globes, extraocular muscles, optic nerves and retrobulbar fat appear unremarkable. CT/Brain/Head without Contrast IMPRESSION: Mild generalized atrophy. Mild low density bilaterally in the deep white matter. This likely represents small vessel ischemic changes in the deep white matter. Electronically Signed: Donaldo Esquivel MD at 3:47 EDT ,
[2021-12-20] MEDS: 0.9% Saline Lock 10 ML Syringe IV ×2 (04:57→21:40)
[2021-12-20] MEDS: 0.9% Normal Saline 1,000 ML 150 ML IV (04:57)
[2021-12-20 05:50] LABS: Absolute Lymphocyte Count 1.72 X10^3/uL (0.83-4.51); Absolute Neutrophil Count 20.7 X10^3/uL (2.0-7.7); Basophil# 0.12 X10^3/uL; Basophil% 0.5 % (0-1); Eosinophil# 0.23 X10^3/uL; Eosinophils% 0.9 % (0-5); Hematocrit 26.9 % (37-47); Lymphocyte # 1.72 X10^3/ul (0.83-4.51); Lymphocyte % 6.5 % (19-41); Mean Corp Hgb Conc 33.5 g/dL (32-36); Mean Corpuscular Hgb 34.5 pg (27.0-32.0); Mean Corpuscular Volume 103.1 fL (81-99); Mean Platelet Vol. 11.1 fl (6.2-12.0); Monocyte% 9.1 % (0-10); NRBC Flagged by Analyzer 0 % (0-5); Neutrophil # 20.74 X10^3/uL (2.7-7.7); Neutrophil % 78.8 % (47-70); POSITIVE DIFFERENTIAL YES; Platelet Count 194 K/mm3 (150-450); RBC Distribution Width CV 15.7 % (11.6-14.6); RBC Distribution Width SD 56.6 fl (35.1-43.9); Red Blood Count 2.61 M/mm3 (4.2-5.4); White Blood Count 26.3 K/mm3 (4.4-11.0)
[2021-12-20 06:06] LABS: Differential Indicated SCAN CRITERIA MET
[2021-12-20 06:32] LABS: Differential Comment SCANNED; Hypochromasia 1+
[2021-12-20 06:53] LABS: ALB/GLOB Ratio 0.4 RATIO (0.9-2.4); AST(SGOT) 125 U/L (15-37); Alanine Aminotransfer ALT/SGPT 71 U/L (13-56); Albumin, Serum 1.8 g/dL (3.2-5.0); Alkaline Phosphatase 135 U/L (45-117); Anion Gap 11 (5-15); BUN 36 mg/dL (7-18); BUN/Creat Ratio 14.8 RATIO (10-20); Calcium,Total 7.8 mg/dL (8.5-10.1); Chloride 95 mmol/L (98-107); Creatinine, Serum 2.43 mg/dL (0.55-1.02); EST Glomerular Filtration Rate 21 mL/min (>60); Est Glom Filt Rate - Afr Amer 26 mL/min (>60); Estimated Creatinine Clearance 17.77 ml/min; Globulin 4.7 g/dL (2.2-4.2); Glucose 88 mg/dL (74-106); Lipase 2283 U/L (73-393); Potassium 3.7 mmol/L (3.5-5.1); Protein, Total 6.5 g/dL (6.4-8.2); Sodium Level 128 mmol/L (136-145)
[2021-12-20 08:50] LABS: International Normalized Ratio 1.7; Prothrombin Time (Protime)PT. 19.6 SECONDS (11.7-14.9)
[2021-12-20 09:40] VITALS: BP 101/40; PULSE 96; RESP 16; TEMP 36.8; O2SAT 95
[2021-12-20 09:40] LABS: Mucous, Urine 0 SEEN /hpf (<or=2+); Red Blood Cells-Urine 0 SEEN /hpf (0-5)
[2021-12-20 09:42] LABS: Color, Urine Yellow (Yellow); Glucose, Dipstick Normal (Normal); Ketone-Dipstick 5 mg/dl (Negative); Leukocyte Esterase-Dipstick 100 /ul (Negative); Nitrite-Dipstick Negative (Negative); Occult Blood-Urine 10 /ul (Negative); Protein-Dipstick 30 mg/dl (Negative); Urine Clarity Sl. Cloudy (Clear); Urine Urobilinogen 8 mg/dl (Normal)
[2021-12-20 09:52] VITALS: BP 101/40
[2021-12-20 09:55] LABS: Urine Sodium < 5 mmol/L (Not Establ.)
[2021-12-20] MEDS: DULoxetine Hcl 60 MG Capsule PO (10:07)
[2021-12-20] MEDS: Pantoprazole Sodium 20 MG Tablet PO (10:07)
[2021-12-20 10:10] LABS: Squamous Epithelial Cells - UA 10-25 SEEN /hpf (5-10); Urine Bilirubin Dipstick 1 mg/dL (Negative); White Blood Cells 0-5 SEEN /hpf (0-5)
[2021-12-20 10:11] LABS: Bacteria 1+ /hpf (None Seen)
[2021-12-20 12:12] LABS: Pathologist Review Reviewed
--- NOTE | 2021-12-20 12:35 | CASEMGMT ---
FAVIOLA OLEA Assessment: Face to Face with pt for initial transition planning/care coordination assessment. RN LEFTY introduced self and role at [facility], pt voices understanding and consents to assessment. Pt is A/O x4 and answers all questions appropriately at this time, although a little slow. at bedside. Care providers, pharmacy, and demographics verified/updated. Admitting Dx: pancreatitis, FAMILIA PCP:[facility] Specialists:Shay, cardio; Juice, rheum; Balbir, neuro; Boo, GI Preferred [facility]acy: [facility] Insurance: MCR/MMO Prescription Benefit: yes LW/HPOA: Pt denies having a LW/DPOA and denies need for info regarding AD. LNOK: Arnie Rudolph, Living Arrangements: Pt lives with in a split level house with no steps to enter. Pt then has 5 steps to go up or down. Pt reports she is I in ADL's and denies concerns at home. Transportation: Pt drives self and denies concerns with transportation but states she gets dizzy sometimes. DME/HHC/SNF: Pt has a w/c, cane and walker at home. She only uses the can occasionally. Pt denies hx of HHC or SNF stays. Pt states that pt has decreased muscle mass. Pt currently denies need for outpt therapy at this time. They are aware that should they change their mind to notify FAVIOLA OLEA. Pt states no concerns with going home at time of dc. Pt states no further concerns/needs. CM to follow. Advised pt to ask CM if any further question/concerns/needs arise, voices understanding. Pt Goal: Home Plan: Home
[2021-12-20 13:40] VITALS: BP 104/57; PULSE 99; RESP 16; TEMP 36.7; O2SAT 92
[2021-12-20] MEDS: oxyCODONE 5 MG Tablet PO ×2 (13:55→21:35)
[2021-12-20] MEDS: Ensure Clear 120 ML Liquid PO ×2 (13:56→17:25)
--- NOTE | 2021-12-20 18:32 | CM.ED ---
SW Note SW went to patient's room ([id number]) to follow up with patient in regards to report that patient was drinking 5 glasses a wine daily. However, patient was alseep and family members were in the room. Due to patient sleeping SW did not meet with patient (as well as family in the room). SW will follow up with patient on 12/21/21. SW to follow up on 12/21/21 Marianne PRABHAKAR
--- NOTE | 2021-12-20 18:44 | PCM.HOSP.N ---
Hospitalist Note Patient was seen and examined briefly today, she had an MRCP done which showed evidence of cirrhosis and ascites, I communicated briefly by text to the life management teacher. He will be seeing the patient. Repeat labs were ordered in the morning.
--- NOTE | 2021-12-20 19:30 | PCM.CONS.GEN ---
Assessment & Plan Assessment/Plan (1) Ascites: PLAN: Ascites secondary to portal hypertension. What concerns me is that her white blood cell count is very high. It could be a leukemoid reaction or reactive leukocytosis. However in the setting of new onset ascites and increased white count I have to some that she has SBP. Recommend Zosyn or meropenem therapy. She may need a diagnostic paracentesis to make sure she does not have any malignancy due to the weight loss. I would recommend to check an CEA, CA 19-9, alpha-fetoprotein. (2) Pancreatitis: PLAN: She likely has alcoholic pancreatitis which is acute on chronic. At this time she is not suffering any issues as far as abdominal pain or diarrhea that would be associated with chronic pancreatitis so we will not start on pancreatic enzymes. Recommend to keep hematocrit close to 35 is possible to prevent any further exacerbation of alcoholic pancreatitis. (3) Cirrhosis: PLAN: She likely has alcoholic cirrhosis as she has a history of fatty liver disease secondary to alcohol. There was a liver masses seen on MRI. However should get alpha-fetoprotein. She is exhibiting some signs of encephalopathy so we will start her on lactulose therapy and Xifaxan 550 mg twice a day. (4) Encephalopathy: PLAN: I believe she has a mild encephalopathy no more than grade 1 at this time. I want to check an ammonia level. HPI Consult Data Date of Consult: 12/20/21 HPI Narrative HPI Narrative: CALIN ANGUIANO, is a 66 F who female with a history of CAD status post RCA PTCA/stent (2016) superimposed upon PSVT, hyperlipidemia, and hypertension.? She has complaints of unintentional weight loss.? Patient has lost roughly 50 pounds.? Things have gotten worse over the past couple weeks where the patient is having early satiety eating very little perhaps up to 200 barrie/day and drinking less.? They were concerned and brought the patient to and [facility] emergency room.? Patient had lab work and a CAT scan that was concerning for acute pancreatitis and acute kidney injury.? They were unable to get the patient admitted to the main campus at [place] or at their local hospital said the patient and her family agreed to go to [place].? Additionally, patient has had increased abdominal distention which has caused her discomfort.? Since she has been unwell recently, patient has cut back her alcohol consumption to a few times throughout the week.? Previously, patient was drinking 5 large glasses of wine daily. Laboratory analysis shows a cholestatic hepatitis. She got an MRI today which shows a cirrhotic liver with ascites and signs of pancreatitis. [facility] Medical History Abdominal aortic aneurysm without rupture Acute ST elevation myocardial infarction (STEMI) Alcohol abuse Atherosclerotic heart disease of [place] coronary artery without angina pectoris Bone fracture Breast lump Carpal tunnel syndrome Depression Essential hypertension Fibromyalgia Former smoker Gait instability [place] GERD (gastroesophageal reflux disease) Hearing loss, left Hearing loss, right Hearing problem Hx of cataract IBS (irritable bowel syndrome) Liver disease Mixed hyperlipidemia Paroxysmal supraventricular tachycardia Presence of stent in coronary artery (~12/28/16) Rheumatoid arthritis Skin cancer Sleep apnea UTI (urinary tract infection) Home Medications aspirin 81 mg tablet,delayed release 81 mg PO DAILY health maintenance 02/12/17 [History Last Taken 12/19/21] metoprolol tartrate 25 mg tablet 25 mg PO BID blood pressure/heart 02/12/17 [History Last Taken 12/19/21] nitroglycerin 0.4 mg sublingual tablet 0.4 mg sublingual PRN PRN Cardiac/Chest Pain 02/12/17 [History Last Taken Unknown] omeprazole 20 mg capsule,delayed release 20 mg PO DAILY gerd 02/12/17 [History Last Taken 12/19/21] cyclobenzaprine 10 mg tablet 10 mg PO TID 12/12/21 [History Last Taken 12/19/21] duloxetine 30 mg capsule,delayed release 30 mg PO QHS #30 caps 12/12/21 [Rx Last Taken 12/19/21] duloxetine 60 mg capsule,delayed release 60 mg PO QAM #30 caps 12/12/21 [Rx Last Taken 12/19/21] etanercept 25 mg/0.5 mL subcutaneous solution (Enbrel) 25 mg subcut QWEEK 12/12/21 [History Last Taken 12/18/21] left wrist splint #1 ea 12/12/21 [Rx Last Taken Unknown] right wrist splint #1 ea 12/12/21 [Rx Last Taken Unknown] Allergy/AdvReac Type Severity Reaction Status Date / Time naproxen Allergy Unknown Verified 12/20/21 02:15 oxaprozin [From Daypro] Allergy Unknown Verified 12/20/21 02:15 Family History Mother Hypertension Other Heart disease Surgical History H/O lumpectomy History of arthroscopic surgery of shoulder History of carpal tunnel surgery History of cholecystectomy History of coronary artery stent placement History of tonsillectomy History of total hysterectomy Hx of section Hx of total knee replacement Presence of coronary angioplasty implant and graft (~12/28/16) S/P right knee arthroscopy S/P trigger finger release Social History Smoking Status: Former smoker how long ago did patient quit smokin alcohol intake: current alcohol intake frequency: 0-2 drinks per day Alcohol type: wine substance use type: does not use caffeine: Yes Type: coffee Number of servings: 1 what type of physical activity do you participate in: walking and weight training frequency: 3-4 times per week duration: 45-60 minutes/day seatbelt use: always do you feel safe at home: Yes ROS ROS Narrative Patient does have. Periods where she is confused but mostly while she is sleeping she will speak out and say some nonsensical things. But according to her , she also does this while she is sleepy at times. Noticed icterus of her eyes and slight jaundice of her skin. All review of systems were negative except as mentioned above in the history of present illness and the other review of systems. Physical Exam Const alert Constitutional Narrative: Cachectic. Appears older than stated age. Stated something about a dog barking while is in the room. General Appearance: cooperative Orientation / Consciousness: confused HEENT normocephalic and head/scalp atraumatic HEENT Narrative: Temporal wasting. Mucous membranes are dry. Eyes Eyes Narrative: No nystagmus. Positive icterus Neck no lymphadenopathy Resp normal respiratory effort, no retractions, no use of accessory muscles and clear to auscultation bilaterally Cardio regular rate, regular rhythm, S1 normal heart sound and S2 normal heart sound GI GI Narrative: Distended. Minimally tender throughout. Normal bowel sounds Extremity normal to inspection and no clubbing, cyanosis or edema Neuro moves all extremities and no focal motor deficits Sensorium / Orientation: awake Medical Records Data Medical Nutrition Assessment Dietitian: Malnutrition Criteria Met Start: 12/20/21 14:22 Freq: Status: Active Protocol: Document 12/20/21 14:22 (Rec: 12/20/21 14:22 [id number]) Nutrition Malnutrition Evidence of Malnutrition Exists Yes Malnutrition (severe): Chronic Evidenced By Suboptimal Energy Intake ( Severe),Weight Loss (Severe) Clinical Problem Chronic Disease or Condition Related Malnutrition Etiology severe, chronic malnutrition related to inadequate oral intake d/t GI dysfunction Signs/Symptoms as evidenced by unintentional wt loss of 36.1#/20% wt loss x 5 months, estimated PO intake meeting <75% of estimated energy needs >3 months Status Active Problem Recommendation Dietitian Recommendations/Changes recommend advance diet as tolerated to regular, low fat; will adjust Ensure to Ensure Clear 120mL 4x/day d/t malnutrition and current clear liquid diet order. Lab / Micro Data Result Diagrams: 12/20/21 05:30 12/20/21 05:30 Labs: Laboratory Results - last 24 hr 12/20/21 05:30: WBC 26.3 H, RBC 2.61 L, Hgb 9.0 L, Hct 26.9 L, MCV 103.1 H, MCH 34.5 H, MCHC 33.5, RDW Std Deviation 56.6 H, RDW Coeff of [place] 15.7 H, Plt Count 194, MPV 11.1, Immature Gran % (Auto) 4.200 H, Neut % (Auto) 78.8 H, Lymph % (Auto) 6.5 L, [place] % (Auto) 9.1, Eos % (Auto) 0.9, Baso % (Auto) 0.5, Absolute Neuts (auto) 20.7 H, Absolute Lymphs (auto) 1.72, Nucleated RBC % 0, Differential Comment SCANNED, Diff Path Review Reviewed, Hypochromasia 1+ 12/20/21 05:30: PT 19.6 H, INR 1.7 12/20/21 05:30: Sodium 128 L, Potassium 3.7, Chloride 95 L, Carbon Dioxide 22.0, Anion Gap 11, BUN 36 H, Creatinine 2.43 H, Estim Creat Clear Calc 17.77, Est GFR (MDRD) Af Amer 26 L, Est GFR (MDRD) Non-Af 21 L, BUN/Creatinine Ratio 14.8, Glucose 88, Calcium 7.8 L, Total Bilirubin 3.10 H, AST 125 H, ALT 71 H, Alkaline Phosphatase 135 H, Total Protein 6.5, Albumin 1.8 L, Globulin 4.7 H, Albumin/Globulin Ratio 0.4 L, Lipase 2283 H, TSH 0.50 12/20/21 05:55: Urine Creatinine 201.00 12/20/21 05:55: Urine Color Yellow, Urine Clarity Sl. Cloudy, Urine pH 5.0, Ur Specific [place] 1.020, Urine Protein 30 H, Urine Glucose (UA) Normal, Urine Ketones 5 H, Urine Occult Blood 10 H, Urine Nitrite Negative, Urine Bilirubin 1 H, Urine Urobilinogen 8 H, Ur Leukocyte Esterase 100 H, Urine RBC 0 SEEN, Urine WBC 0-5 SEEN, Ur Squamous Epith Cells 10-25 SEEN, Urine Bacteria 1+, Urine Mucus 0 SEEN 12/20/21 05:55: Ur Random Sodium < 5 Radiology Impression MRCP 12/20/21 03:10 IMPRESSION: Bilateral pleural effusions. Bilateral pneumonia. There is hepatic cirrhosis. There is enlargement and inflammation around the pancreas. There is minimal fluid around the pancreas. This is consistent for acute pancreatitis. Abdominal ascites. Electronically Signed: Ky Roe MD at 14:27 EDT , Renal Ultrasound 12/20/21 03:10 IMPRESSION: No acute findings. Electronically Signed: Amauri House at 9:27 EDT , Brain CT 12/20/21 03:11 IMPRESSION: Mild generalized atrophy. Mild low density bilaterally in the deep white matter. This likely represents small vessel ischemic changes in the deep white matter. Electronically Signed: Donaldo Esquivel MD at 3:47 EDT , Charges/Coding Visit Charges Inpatient E&M: 92427 Init Hosp L3
[2021-12-20 20:54] VITALS: BP 112/60; PULSE 112; RESP 16; TEMP 36.7; O2SAT 94
[2021-12-20] MEDS: DULoxetine Hcl 30 MG Capsule PO (21:35)
[2021-12-20] MEDS: Lactulose 20 GM/30 ML UDC 10 GM PO (21:44)
[2021-12-20 21:45] VITALS: BP 112/60; PULSE 112
[2021-12-20] MEDS: Metoprolol Tartrate 25 MG Tablet PO (21:45)
[2021-12-21 02:53] VITALS: BP 99/65; PULSE 85; RESP 16; TEMP 36.6; O2SAT 93
[2021-12-21 06:26] LABS: Absolute Lymphocyte Count 1.27 X10^3/uL (0.83-4.51); Absolute Neutrophil Count 19.2 X10^3/uL (2.0-7.7); Basophil# 0.08 X10^3/uL; Basophil% 0.3 % (0-1); Eosinophil# 0.24 X10^3/uL; Hematocrit 26.9 % (37-47); Hemoglobin 9.1 g/dL (12.0-15.0); Lymphocyte # 1.27 X10^3/ul (0.83-4.51); Lymphocyte % 5.3 % (19-41); Mean Corp Hgb Conc 33.8 g/dL (32-36); Mean Corpuscular Hgb 34.9 pg (27.0-32.0); Mean Corpuscular Volume 103.1 fL (81-99); Mean Platelet Vol. 10.9 fl (6.2-12.0); Monocyte# 2.23 X10^3/uL; Monocyte% 9.3 % (0-10); NRBC Flagged by Analyzer 0 % (0-5); Neutrophil # 19.17 X10^3/uL (2.7-7.7); Neutrophil % 79.9 % (47-70); POSITIVE DIFFERENTIAL YES; Platelet Count 200 K/mm3 (150-450); RBC Distribution Width SD 57.7 fl (35.1-43.9); Red Blood Count 2.61 M/mm3 (4.2-5.4)
[2021-12-21 06:29] LABS: Differential Indicated SCAN CRITERIA MET
[2021-12-21 06:44] LABS: Anisocytosis 1+; Differential Comment SCANNED; Macrocytosis 1+
[2021-12-21 07:00] LABS: ALB/GLOB Ratio 0.4 RATIO (0.9-2.4); AST(SGOT) 76 U/L (15-37); Alanine Aminotransfer ALT/SGPT 57 U/L (13-56); Alkaline Phosphatase 145 U/L (45-117); Anion Gap 11 (5-15); BUN 41 mg/dL (7-18); BUN/Creat Ratio 23.7 RATIO (10-20); Calcium,Total 7.8 mg/dL (8.5-10.1); Chloride 99 mmol/L (98-107); Creatinine, Serum 1.73 mg/dL (0.55-1.02); EST Glomerular Filtration Rate 31 mL/min (>60); Est Glom Filt Rate - Afr Amer 38 mL/min (>60); Estimated Creatinine Clearance 24.96 ml/min; Globulin 4.8 g/dL (2.2-4.2); Glucose 106 mg/dL (74-106); Potassium 3.5 mmol/L (3.5-5.1); Protein, Total 6.8 g/dL (6.4-8.2); Sodium Level 130 mmol/L (136-145)
[2021-12-21 08:29] VITALS: BP 111/81; PULSE 87; RESP 16; TEMP 36.6; O2SAT 92
[2021-12-21] MEDS: 0.9% Saline Lock 10 ML Syringe IV (09:19)
--- NOTE | 2021-12-21 09:19 | PCM.PROGNOTE ---
Subjective Subjective No events overnight. Patient is tolerating a diet and she is a lot less nauseous. Objective Data Objective Data Vital Signs: Vital Signs Temp Pulse Resp BP Pulse Ox 98 F 87 16 111/81 H 92 12/21/21 08:29 12/21/21 08:29 12/21/21 08:29 12/21/21 08:29 12/21/21 08:29 Oxygen Delivery Method Room Air Weight: 145 lb 15.136 oz Body Mass Index (BMI) 26.6 Intake & Output: Intake and Output for Last 24 Hours 12/19/21 12/20/21 12/21/21 23:59 23:59 23:59 Intake Total 460.0 / 460.0 50 / 50 Balance 460.0 / 460.0 50 / 50 Medical Nutrition Assessment Dietitian: Malnutrition Criteria Met Start: 12/20/21 14:22 Freq: Status: Active Protocol: Document 12/20/21 14:22 AG (Rec: 12/20/21 14:22 [id number]) Nutrition Malnutrition Evidence of Malnutrition Exists Yes Malnutrition (severe): Chronic Evidenced By Suboptimal Energy Intake ( Severe),Weight Loss (Severe) Clinical Problem Chronic Disease or Condition Related Malnutrition Etiology severe, chronic malnutrition related to inadequate oral intake d/t GI dysfunction Signs/Symptoms as evidenced by unintentional wt loss of 36.1#/20% wt loss x 5 months, estimated PO intake meeting <75% of estimated energy needs >3 months Status Active Problem Recommendation Dietitian Recommendations/Changes recommend advance diet as tolerated to regular, low fat; will adjust Ensure to Ensure Clear 120mL 4x/day d/t malnutrition and current clear liquid diet order. Lab / Micro Data Result Diagrams: 12/21/21 05:27 12/21/21 05:27 Labs: Laboratory Results - last 24 hr 12/20/21 05:30: Diff Path Review Reviewed 12/20/21 05:55: Urine Creatinine 201.00 12/20/21 05:55: Urine Color Yellow, Urine Clarity Sl. Cloudy, Urine pH 5.0, Ur Specific [place] 1.020, Urine Protein 30 H, Urine Glucose (UA) Normal, Urine Ketones 5 H, Urine Occult Blood 10 H, Urine Nitrite Negative, Urine Bilirubin 1 H, Urine Urobilinogen 8 H, Ur Leukocyte Esterase 100 H, Urine RBC 0 SEEN, Urine WBC 0-5 SEEN, Ur Squamous Epith Cells 10-25 SEEN, Urine Bacteria 1+, Urine Mucus 0 SEEN 12/20/21 05:55: Ur Random Sodium < 5 12/21/21 05:27: WBC 24.0 H, RBC 2.61 L, Hgb 9.1 L, Hct 26.9 L, MCV 103.1 H, MCH 34.9 H, MCHC 33.8, RDW Std Deviation 57.7 H, RDW Coeff of [place] 16.0 H, Plt Count 200, MPV 10.9, Immature Gran % (Auto) 4.200 H, Neut % (Auto) 79.9 H, Lymph % (Auto) 5.3 L, [place] % (Auto) 9.3, Eos % (Auto) 1.0, Baso % (Auto) 0.3, Absolute Neuts (auto) 19.2 H, Absolute Lymphs (auto) 1.27, Nucleated RBC % 0, Differential Comment SCANNED, Diff Path Review May , Anisocytosis 1+, Macrocytosis 1+ 12/21/21 05:27: Sodium 130 L, Potassium 3.5, Chloride 99, Carbon Dioxide 20.0 L, Anion Gap 11, BUN 41 H, Creatinine 1.73 H, Estim Creat Clear Calc 24.96, Est GFR (MDRD) Af Amer 38 L, Est GFR (MDRD) Non-Af 31 L, BUN/Creatinine Ratio 23.7 H, Glucose 106, Calcium 7.8 L, Total Bilirubin 2.60 H, AST 76 H, ALT 57 H, Alkaline Phosphatase 145 H, Total Protein 6.8, Albumin 2.0 L, Globulin 4.8 H, Albumin/Globulin Ratio 0.4 L Radiography Diagnostic Testing: Radiology Impression MRCP 12/20/21 03:10 IMPRESSION: Bilateral pleural effusions. Bilateral pneumonia. There is hepatic cirrhosis. There is enlargement and inflammation around the pancreas. There is minimal fluid around the pancreas. This is consistent for acute pancreatitis. Abdominal ascites. Electronically Signed: Ky Roe MD at 14:27 EDT Reading Location ID and State: [facility] / [place] , Service support , Renal Ultrasound 12/20/21 03:10 IMPRESSION: No acute findings. Electronically Signed: Amauri House, at 9:27 EDT , Physical Exam Const alert Constitutional Narrative: Cachectic. Appears older than stated age. Stated something about a dog barking while is in the room. General Appearance: cooperative Orientation / Consciousness: confused HEENT normocephalic and head/scalp atraumatic HEENT Narrative: Temporal wasting. Mucous membranes are dry. Eyes Eyes Narrative: No nystagmus. Positive icterus Neck no lymphadenopathy Resp normal respiratory effort, no retractions, no use of accessory muscles and clear to auscultation bilaterally Cardio regular rate, regular rhythm, S1 normal heart sound and S2 normal heart sound GI GI Narrative: Distended. Minimally tender throughout. Normal bowel sounds Extremity normal to inspection and no clubbing, cyanosis or edema Neuro moves all extremities and no focal motor deficits Sensorium / Orientation: awake Assessment & Plan Assessment/Plan (1) Encephalopathy: PLAN: She is a lot clear than she was yesterday. She knows who she is, the year and the president [facility]. She is in between grade 0 grade 1 encephalopathy. (2) Cirrhosis: PLAN: Decompensated cirrhosis with ascites possibly secondary to pancreatitis versus portal hypertension. She will need an upper endoscopy to assess for varices. Awaiting alpha-fetoprotein. We addressed her alcoholism at the bedside with her and she stresses that she will not drink anymore alcohol. (3) Ascites: PLAN: She does not need a paracentesis at this time and should do well with diuretic therapy (4) Pancreatitis: PLAN: . She still has active pancreatitis by imaging and by biochemical analysis. She is not showing any signs of ileus secondary to pancreatitis or gastroparesis secondary to pancreatitis. I am okay with advancing her diet. Charges/Coding Visit Charges Inpatient E&M: 36281 Subs Hosp L3
[2021-12-21 09:26] VITALS: PULSE 87
[2021-12-21] MEDS: Metoprolol Tartrate 25 MG Tablet PO ×2 (09:26→21:40)
[2021-12-21] MEDS: Pantoprazole Sodium 20 MG Tablet PO (09:26)
[2021-12-21] MEDS: Lactulose 20 GM/30 ML UDC 10 GM PO ×2 (09:26→21:35)
[2021-12-21] MEDS: DULoxetine Hcl 60 MG Capsule PO (09:26)
[2021-12-21] MEDS: Ensure Clear 120 ML Liquid PO ×3 (09:29→21:34)
--- NOTE | 2021-12-21 12:13 | CM.ED ---
SW Note Referral Source: [facility] SW Referral Reason: Per report patient has been drinking a bottle of wine daily SW met with patient and her in the room. SW asked to speak to patient privately and patient's agreed to exit the room so this policy writer sales and patient met privately. SW stated that it has been reported that patient is drinking 5 drinks a day. Patient said in the last couple of weeks I have just drank 2 . SW inquired if that was 2 drinks a day or 2 drinks and patient said 2 drinks total within the last couple of weeks. SW inquired if patient wants information about AOD treatment including pamphlet on [employer] and patient declined. No further SW social needs needed at this time. SW remains available. Plan: Resources were made available. Patient declined resources Marianne PRABHAKAR
[2021-12-21] MEDS: oxyCODONE 5 MG Tablet PO (13:54)
--- NOTE | 2021-12-21 14:41 | PN.HOSP_ITS ---
Subjective Subjective Patient was seen and examined today, she is resting quietly, she has minimal abdominal discomfort at this time, patient's white blood cell count was elevated at 24,000's morning, hemoglobin was 9.1. Objective Data Objective Data Vital Signs: Vital Signs Temp Pulse Resp BP Pulse Ox 98 F 87 16 111/81 H 92 12/21/21 08:29 12/21/21 09:26 12/21/21 08:29 12/21/21 08:29 12/21/21 08:29 Oxygen Delivery Method Room Air Weight: 66.2 kg Body Mass Index (BMI) 26.6 Intake & Output: Intake and Output for Last 24 Hours 12/19/21 12/20/21 12/21/21 23:59 23:59 23:59 Intake Total 460.0 / 460.0 100 / 100 Balance 460.0 / 460.0 100 / 100 Medical Nutrition Assessment Dietitian: Malnutrition Criteria Met Start: 12/20/21 14:22 Freq: Status: Active Protocol: Document 12/20/21 14:22 (Rec: 12/20/21 14:22 [id number]) Nutrition Malnutrition Evidence of Malnutrition Exists Yes Malnutrition (severe): Chronic Evidenced By Suboptimal Energy Intake ( Severe),Weight Loss (Severe) Clinical Problem Chronic Disease or Condition Related Malnutrition Etiology severe, chronic malnutrition related to inadequate oral intake d/t GI dysfunction Signs/Symptoms as evidenced by unintentional wt loss of 36.1#/20% wt loss x 5 months, estimated PO intake meeting <75% of estimated energy needs >3 months Status Active Problem Recommendation Dietitian Recommendations/Changes recommend advance diet as tolerated to regular, low fat; will adjust Ensure to Ensure Clear 120mL 4x/day d/t malnutrition and current clear liquid diet order. Lab / Micro Data Result Diagrams: 12/21/21 05:27 12/21/21 05:27 Labs: Laboratory Results - last 24 hr 12/21/21 05:27: WBC 24.0 H, RBC 2.61 L, Hgb 9.1 L, Hct 26.9 L, MCV 103.1 H, MCH 34.9 H, MCHC 33.8, RDW Std Deviation 57.7 H, RDW Coeff of [place] 16.0 H, Plt Count 200, MPV 10.9, Immature Gran % (Auto) 4.200 H, Neut % (Auto) 79.9 H, Lymph % (Auto) 5.3 L, [place] % (Auto) 9.3, Eos % (Auto) 1.0, Baso % (Auto) 0.3, Absolute Neuts (auto) 19.2 H, Absolute Lymphs (auto) 1.27, Nucleated RBC % 0, Differential Comment SCANNED, Diff Path Review October, Anisocytosis 1+, Macrocytosis 1+ 12/21/21 05:27: Sodium 130 L, Potassium 3.5, Chloride 99, Carbon Dioxide 20.0 L, Anion Gap 11, BUN 41 H, Creatinine 1.73 H, Estim Creat Clear Calc 24.96, Est GFR (MDRD) Af Amer 38 L, Est GFR (MDRD) Non-Af 31 L, BUN/Creatinine Ratio 23.7 H, G lucose 106, Calcium 7.8 L, Total Bilirubin 2.60 H, AST 76 H, ALT 57 H, Alkaline Phosphatase 145 H, Total Protein 6.8, Albumin 2.0 L, Globulin 4.8 H, Albumin/Globulin Ratio 0.4 L Micro: Microbiology 12/20/21 05:55 Urine, Clean Catch Urine Culture - Preliminary Culture exhibits no growth. Physical Exam Const alert, oriented x3, no apparent distress and average body habitus Constitutional Narrative: Patient appears older than her stated age HEENT head/scalp atraumatic and moist oral mucous membranes Resp normal respiratory effort, no retractions, no use of accessory muscles and clear to auscultation bilaterally Cardio regular rate, regular rhythm, S1 normal heart sound, S2 normal heart sound and no murmurs GI normal to inspection, nondistended, normoactive bowel sounds, soft to palpation and non-distended Extremity normal to inspection Neuro oriented x3, CN's II-XII intact bilaterally and moves all extremities Psych affect normal Assessment & Plan Assessment/Plan (1) Pancreatitis: PLAN: Plan 1. Acute pancreatitis-secondary to alcohol use, supportive care will continue with IV fluids and pain medicine as needed #2 toxic and metabolic encephalopathy secondary to cirrhosis-GI placed the patient on lactulose, patient is alert and appropriate today #3 cirrhosis secondary to alcohol usage-patient will need follow-up with GI as an outpatient #4 leukocytosis-etiology of the patient's leukocytosis is unknown at this time, GI recommends continuing IV antibiotics in case she has spontaneous bacterial peritonitis #5 chronic depression-patient is on Cymbalta #6 severe caloric and protein malnutrition related to inadequate oral intake as evidenced by unintentional weight loss of 36.1 pounds over 5 months, estimated p.o. intake meeting less than 75% of estimated energy needs over 3 months- patient will be placed on a regular diet as tolerated, Ensure clear will be given 4 times a day #7 acute kidney injury-patient's creatinine is improved to 1.73 today, I will repeat labs tomorrow, continue to administer fluids #8 anemia-etiology unclear, patient's last hemoglobin in her medical chart was on 07/12/21-I will order iron studies on the patient Charges/Coding Visit Charges Inpatient E&M: 03305 Subs Hosp L2
[2021-12-21 14:53] VITALS: BP 122/68; PULSE 82; RESP 14; TEMP 36.7; O2SAT 95
[2021-12-21] MEDS: DULoxetine Hcl 30 MG Capsule PO (21:35)
[2021-12-21 21:40] VITALS: PULSE 90
[2021-12-21 21:54] VITALS: BP 113/58; PULSE 90; RESP 16; TEMP 36.6; O2SAT 94
[2021-12-22] VITALS (8 sets, daily range): BP systolic 101–120; BP diastolic 46–93; PULSE 84–102; RESP 16; TEMP 36.1–36.8; O2SAT 94–98
[2021-12-22 05:47] LABS: Absolute Neutrophil Count 18.7 X10^3/uL (2.0-7.7); Basophil# 0.11 X10^3/uL; Basophil% 0.5 % (0-1); Eosinophil# 0.21 X10^3/uL; Eosinophils% 0.9 % (0-5); Hematocrit 30.7 % (37-47); Hemoglobin 9.9 g/dL (12.0-15.0); Lymphocyte % 4.7 % (19-41); Mean Corp Hgb Conc 32.2 g/dL (32-36); Mean Corpuscular Hgb 33.9 pg (27.0-32.0); Mean Corpuscular Volume 105.1 fL (81-99); Mean Platelet Vol. 11.1 fl (6.2-12.0); Monocyte# 2.27 X10^3/uL; Monocyte% 9.7 % (0-10); NRBC Flagged by Analyzer 0 % (0-5); Neutrophil # 18.67 X10^3/uL (2.7-7.7); Neutrophil % 80.2 % (47-70); POSITIVE DIFFERENTIAL YES; Platelet Count 216 K/mm3 (150-450); RBC Distribution Width CV 16.5 % (11.6-14.6); RBC Distribution Width SD 60.6 fl (35.1-43.9); Red Blood Count 2.92 M/mm3 (4.2-5.4); White Blood Count 23.3 K/mm3 (4.4-11.0)
[2021-12-22 06:21] LABS: Differential Indicated SCAN CRITERIA MET
[2021-12-22 06:44] LABS: Differential Comment SCANNED
[2021-12-22 06:45] LABS: ALB/GLOB Ratio 0.4 RATIO (0.9-2.4); AST(SGOT) 77 U/L (15-37); Alanine Aminotransfer ALT/SGPT 51 U/L (13-56); Albumin, Serum 1.9 g/dL (3.2-5.0); Alkaline Phosphatase 168 U/L (45-117); Anion Gap 10 (5-15); BUN 36 mg/dL (7-18); BUN/Creat Ratio 34.3 RATIO (10-20); Calcium,Total 8.1 mg/dL (8.5-10.1); Chloride 101 mmol/L (98-107); Creatinine, Serum 1.05 mg/dL (0.55-1.02); EST Glomerular Filtration Rate 56 mL/min (>60); Est Glom Filt Rate - Afr Amer 67 mL/min (>60); Estimated Creatinine Clearance 41.12 ml/min; Glucose 110 mg/dL (74-106); Iron 34 ug/dL (50-170); Iron Binding Capacity,Total 139 ug/dL (250-450); PERCENT IRON SATURATION 24.5 % (15.0-55.0); Potassium 3.5 mmol/L (3.5-5.1); Protein, Total 6.9 g/dL (6.4-8.2); Sodium Level 132 mmol/L (136-145)
[2021-12-22] MEDS: Ensure Clear 120 ML Liquid PO ×3 (09:13→20:56)
[2021-12-22] MEDS: DULoxetine Hcl 60 MG Capsule PO (09:13)
[2021-12-22] MEDS: Pantoprazole Sodium 20 MG Tablet PO (09:13)
[2021-12-22] MEDS: Lactulose 20 GM/30 ML UDC 10 GM PO ×2 (09:13→20:55)
[2021-12-22] MEDS: oxyCODONE 5 MG Tablet PO (11:40)
--- NOTE | 2021-12-22 12:21 | PCM.PN.HOSP ---
Subjective Subjective Patient was seen and examined today, her was at the bedside today during the time of my examination, patient has no abdominal discomfort today, according to the , she is not eating well however. Patient's bilirubin is slightly increased today, liver enzymes remain elevated, and the patient remains with an elevated white blood cell count. Patient is afebrile however. Nursing states that the patient has had some confusion today, patient is alert and responds appropriately to simple questions when I talk to her today. Objective Data Objective Data Vital Signs: Vital Signs Temp Pulse Resp BP Pulse Ox 97.0 F L 88 16 101/46 L 95 12/22/21 09:14 12/22/21 09:14 12/22/21 09:14 12/22/21 09:15 12/22/21 09:14 Oxygen Delivery Method Room Air Weight: 66.2 kg Body Mass Index (BMI) 26.6 Intake & Output: Intake and Output for Last 24 Hours 12/20/21 12/21/21 12/22/21 23:59 23:59 23:59 Intake Total 460.0 / 460.0 1150 / 1150 550 / 550 Balance 460.0 / 460.0 1150 / 1150 550 / 550 Medical Nutrition Assessment Dietitian: Malnutrition Criteria Met Start: 12/20/21 14:22 Freq: Status: Active Protocol: Document 12/20/21 14:22 (Rec: 12/20/21 14:22 [id number]) Nutrition Malnutrition Evidence of Malnutrition Exists Yes Malnutrition (severe): Chronic Evidenced By Suboptimal Energy Intake ( Severe),Weight Loss (Severe) Clinical Problem Chronic Disease or Condition Related Malnutrition Etiology severe, chronic malnutrition related to inadequate oral intake d/t GI dysfunction Signs/Symptoms as evidenced by unintentional wt loss of 36.1#/20% wt loss x 5 months, estimated PO intake meeting <75% of estimated energy needs >3 months Status Active Problem Recommendation Dietitian Recommendations/Changes recommend advance diet as tolerated to regular, low fat; will adjust Ensure to Ensure Clear 120mL 4x/day d/t malnutrition and current clear liquid diet order. Lab / Micro Data Result Diagrams: 12/22/21 05:36 12/22/21 05:36 Labs: Laboratory Results - last 24 hr 12/22/21 05:36: WBC 23.3 H, RBC 2.92 L, Hgb 9.9 L, Hct 30.7 L, MCV 105.1 H, MCH 33.9 H, MCHC 32.2, RDW Std Deviation 60.6 H, RDW Coeff of [place] 16.5 H, Plt Count 216, MPV 11.1, Immature Gran % (Auto) 4.000 H, Neut % (Auto) 80.2 H, Lymph % (Auto) 4.7 L, [place] % (Auto) 9.7, Eos % (Auto) 0.9, Baso % (Auto) 0.5, Absolute Neuts (auto) 18.7 H, Absolute Lymphs (auto) 1.10, Nucleated RBC % 0, Differential Comment SCANNED, Diff Path Review October12/22/21 05:36: Sodium 132 L, Potassium 3.5, Chloride 101, Carbon Dioxide 21.0, Anion Gap 10, BUN 36 H, Creatinine 1.05 H, Estim Creat Clear Calc 41.12, Est GFR (MDRD) Af Amer 67, Est GFR (MDRD) Non-Af 56 L, BUN/Creatinine Ratio 34.3 H, Glucose 110 H, Calcium 8.1 L, Iron 34 L, TIBC 139 L, Iron Saturation 24.5, Total Bilirubin 3.10 H, AST 77 H, ALT 51, Alkaline Phosphatase 168 H, Total Protein 6.9, Albumin 1.9 L, Globulin 5.0 H, Albumin/Globulin Ratio 0.4 L Micro: Microbiology 12/20/21 04:16 Blood Culture (Wb) - Anticubital Left Blood Culture - Preliminary No growth in 48 hours. 12/20/21 03:57 Blood Culture (Wb) - Anticubital Left Blood Culture - Preliminary No growth in 48 hours. 12/20/21 05:55 Urine, Clean Catch Urine Culture - Preliminary Culture exhibits no growth. Physical Exam Const alert, oriented x3, no apparent distress and average body habitus Constitutional Narrative: Patient appears older than her stated age General Appearance: cooperative Orientation / Consciousness: confused HEENT normocephalic, head/scalp atraumatic and moist oral mucous membranes Eyes Eyes Narrative: No nystagmus. Positive icterus Neck no lymphadenopathy Resp normal respiratory effort, no retractions, no use of accessory muscles and clear to auscultation bilaterally Cardio regular rate, regular rhythm, S1 normal heart sound, S2 normal heart sound and no murmurs GI normal to inspection, nondistended, normoactive bowel sounds, soft to palpation and non-tender GI Narrative: Slightly distended. Normal bowel sounds Extremity normal to inspection and no clubbing, cyanosis or edema Neuro oriented x3, CN's II-XII intact bilaterally, moves all extremities and no focal motor deficits Sensorium / Orientation: awake and alert Psych Psych Narrative: Patient has flat affect Assessment & Plan Assessment/Plan (1) Pancreatitis: PLAN: Plan 1. Acute pancreatitis-secondary to alcohol use, supportive care will continue with supportive care at this time #2 toxic and metabolic encephalopathy secondary to cirrhosis-GI placed the patient on lactulose, patient is alert and appropriate today to this examiner, I will order serum ammonia level on the patient today. #3 cirrhosis secondary to alcohol usage-patient will need follow-up with GI as an outpatient #4 leukocytosis-etiology of the patient's leukocytosis is unknown at this time, GI recommends continuing IV antibiotics in case she has spontaneous bacterial peritonitis, I will have infectious diseases see the patient tomorrow #5 chronic depression-patient is on Cymbalta #6 severe caloric and protein malnutrition related to inadequate oral intake as evidenced by unintentional weight loss of 36.1 pounds over 5 months, estimated p.o. intake meeting less than 75% of estimated energy needs over 3 months-patient will be placed on a regular diet as tolerated, Ensure clear will be given 4 times a day #7 acute kidney injury-patient's creatinine is improved to 1.05 today. Repeat CMP tomorrow #8 anemia-iron deficiency-patient's iron level was low yesterday, I will give her an infusion of Venofer Charges/Coding Visit Charges Inpatient E&M: 58512 [facility] Hosp L3
[2021-12-22] MEDS: Metoprolol Tartrate 25 MG Tablet PO (20:55)
[2021-12-22] MEDS: DULoxetine Hcl 30 MG Capsule PO (20:55)
[2021-12-23 03:01] VITALS: BP 112/60; PULSE 88; RESP 16; TEMP 36.8; O2SAT 93
[2021-12-23 06:11] LABS: Absolute Lymphocyte Count 1.39 X10^3/uL (0.83-4.51); Absolute Neutrophil Count 17.9 X10^3/uL (2.0-7.7); Basophil# 0.08 X10^3/uL; Basophil% 0.4 % (0-1); Eosinophil# 0.21 X10^3/uL; Eosinophils% 0.9 % (0-5); Hematocrit 26.9 % (37-47); Hemoglobin 9.2 g/dL (12.0-15.0); Lymphocyte # 1.39 X10^3/ul (0.83-4.51); Lymphocyte % 6.1 % (19-41); Mean Corp Hgb Conc 34.2 g/dL (32-36); Mean Corpuscular Hgb 34.6 pg (27.0-32.0); Mean Corpuscular Volume 101.1 fL (81-99); Mean Platelet Vol. 10.6 fl (6.2-12.0); Monocyte# 2.08 X10^3/uL; Monocyte% 9.2 % (0-10); NRBC Flagged by Analyzer 0 % (0-5); Neutrophil # 17.86 X10^3/uL (2.7-7.7); Neutrophil % 78.7 % (47-70); POSITIVE DIFFERENTIAL YES; Platelet Count 240 K/mm3 (150-450); RBC Distribution Width CV 16.7 % (11.6-14.6); RBC Distribution Width SD 59.2 fl (35.1-43.9); Red Blood Count 2.66 M/mm3 (4.2-5.4); White Blood Count 22.7 K/mm3 (4.4-11.0)
[2021-12-23 06:17] LABS: Differential Indicated SCAN CRITERIA MET
[2021-12-23 06:29] LABS: Anisocytosis 1+
[2021-12-23 07:06] LABS: ALB/GLOB Ratio 0.4 RATIO (0.9-2.4); AST(SGOT) 57 U/L (15-37); Alanine Aminotransfer ALT/SGPT 46 U/L (13-56); Albumin, Serum 1.9 g/dL (3.2-5.0); Alkaline Phosphatase 168 U/L (45-117); Anion Gap 11 (5-15); BUN 30 mg/dL (7-18); BUN/Creat Ratio 40.9 RATIO (10-20); Calcium,Total 8.4 mg/dL (8.5-10.1); Chloride 101 mmol/L (98-107); Creatinine, Serum 0.73 mg/dL (0.55-1.02); EST Glomerular Filtration Rate 84 mL/min (>60); Est Glom Filt Rate - Afr Amer 102 mL/min (>60); Estimated Creatinine Clearance 43.18 ml/min; Globulin 5.1 g/dL (2.2-4.2); Glucose 105 mg/dL (74-106); Potassium 2.7 mmol/L (3.5-5.1); Sodium Level 133 mmol/L (136-145)
--- NOTE | 2021-12-23 07:18 | PN.HOSP_ITS ---
Subjective Subjective Patient is a 66-year-old lady admitted with epigastric discomfort found to have elevated lipase levels consistent with acute pancreatitis Objective Data Objective Data Vital Signs: Vital Signs Temp Pulse Resp BP Pulse Ox 98.2 F 88 16 112/60 93 12/23/21 03:01 12/23/21 03:01 12/23/21 03:01 12/23/21 03:01 12/23/21 03:01 Oxygen Delivery Method Room Air Weight: 66.2 kg Body Mass Index (BMI) 26.6 Intake & Output: Intake and Output for Last 24 Hours 12/21/21 12/22/21 12/23/21 23:59 23:59 23:59 Intake Total 1150 / 1150 1170.00 / 1170.00 250 / 250 Balance 1150 / 1150 1170.00 / 1170.00 250 / 250 Medical Nutrition Assessment Dietitian: Malnutrition Criteria Met Start: 12/20/21 14:22 Freq: Status: Active Protocol: Document 12/20/21 14:22 (Rec: 12/20/21 14:22 [id number]) Nutrition Malnutrition Evidence of Malnutrition Exists Yes Malnutrition (severe): Chronic Evidenced By Suboptimal Energy Intake ( Severe),Weight Loss (Severe) Clinical Problem Chronic Disease or Condition Related Malnutrition Etiology severe, chronic malnutrition related to inadequate oral intake d/t GI dysfunction Signs/Symptoms as evidenced by unintentional wt loss of 36.1#/20% wt loss x 5 months, estimated PO intake meeting <75% of estimated energy needs >3 months Status Active Problem Recommendation Dietitian Recommendations/Changes recommend advance diet as tolerated to regular, low fat; will adjust Ensure to Ensure Clear 120mL 4x/day d/t malnutrition and current clear liquid diet order. Lab / Micro Data Result Diagrams: 12/23/21 05:48 12/23/21 05:48 Labs: Laboratory Results - last 24 hr 12/22/21 13:42: Ammonia 15.0 12/23/21 05:48: WBC 22.7 H, RBC 2.66 L, Hgb 9.2 L, Hct 26.9 L, MCV 101.1 H, MCH 34.6 H, MCHC 34.2 D, RDW Std Deviation 59.2 H, RDW Coeff of [place] 16.7 H, Plt Count 240, MPV 10.6, Immature Gran % (Auto) 4.700 H, Neut % (Auto) 78.7 H, Lymph % (Auto) 6.1 L, [place] % (Auto) 9.2, Eos % (Auto) 0.9, Baso % (Auto) 0.4, Absolute Neuts (auto) 17.9 H, Absolute Lymphs (auto) 1.39, Nucleated RBC % 0, Diff Path Review May foll, Anisocytosis 1+ 12/23/21 05:48: Sodium 133 L, Potassium 2.7 L*, Chloride 101, Carbon Dioxide 21.0, Anion Gap 11, BUN 30 H, Creatinine 0.73, Estim Creat Clear Calc 43.18, Est GFR (MDRD) Af Amer 102, Est GFR (MDRD) Non-Af 84, BUN/Creatinine Ratio 40.9 H, Glucose 105, Calcium 8.4 L, Total Bilirubin 3.00 H, AST 57 H, ALT 46, Alkaline Phosphatase 168 H, Total Protein 7.0, Albumin 1.9 L, Globulin 5.1 H, Albumin/Globulin Ratio 0.4 L Micro: Microbiology 12/20/21 05:55 Urine, Clean Catch Urine Culture - Final Yeast 12/20/21 04:16 Blood Culture (Wb) - Anticubital Left Blood Culture - Preliminary No growth in 48 hours. 12/20/21 03:57 Blood Culture (Wb) - Anticubital Left Blood Culture - Preliminary No growth in 48 hours. Physical Exam Narrative GENERAL: cooperative HEENT: Atraumatic; EYES; Anicteric, Normal Conjunctiva NECK; supple, normal thyroid, RESPIRATORY: Diminished to auscultation CARDIOVASCULAR: Regular S1 S2, GI: soft, normoactive bowel sounds, : No Renal angle tenderness; EXTREMITIES: No edema, no clubbing, MUSCULOSKELETAL: no muscle wasting NEURO: Awake; no lateralizing signs. SKIN: No Rash PSYCH; Flat affect Assessment & Plan Assessment/Plan (1) Pancreatitis: PLAN: Plan Patient is a 66-year-old lady admitted with epigastric discomfort found to have elevated lipase levels consistent with acute pancreatitis 1. Acute pancreatitis ? Secondary to alcohol use admitted to regular nursing floor for conservative management with pain meds IV fluid with consultation placed to GI 2. Toxic metabolic encephalopathy ? Secondary to cirrhosis of the liver. Managed with lactulose 3. Persistent leukocytosis ? Monitoring so far no obvious source of infection 4. Hypokalemia -Corrected per protocol 5. Mild hyponatremia ? On IV fluid with monitoring 6. Acute kidney injury ? Managed with IV fluids kidney function back to baseline 7. Anemia - Secondary to chronic disorder monitoring H&H and transfuse if patient becomes symptomatic or hemoglobin falls below 7 8. Depression ? Patient is on Cymbalta 9. Severe caloric and protein malnutrition r -elated to inadequate oral intake as evidenced by unintentional weight loss of 36.1 pounds over 5 months, estimated p.o. intake meeting less than 75% of estimated energy needs over 3 months-patient will be placed on a regular diet as tolerated, Ensure clear will be given 4 times a day 10. Hypomagnesemia ? Corrected per protocol, subsequent monitoring with repeat magnesium in a.m. ordered Charges/Coding Visit Charges Inpatient E&M: 21402 Subs Hosp L2
[2021-12-23 08:35] VITALS: BP 111/64; PULSE 84; RESP 16; TEMP 36.6; O2SAT 95
[2021-12-23 08:37] VITALS: BP 111/64; PULSE 84
[2021-12-23] MEDS: Pantoprazole Sodium 20 MG Tablet PO (08:37)
[2021-12-23] MEDS: DULoxetine Hcl 60 MG Capsule PO (08:37)
[2021-12-23] MEDS: Metoprolol Tartrate 25 MG Tablet PO (08:37)
[2021-12-23] MEDS: Ensure Clear 120 ML Liquid PO ×2 (08:50→13:26)
[2021-12-23] MEDS: Potassium Chloride 10mEq/100mL 10 MEQ/100 ML IV.SOLN. 100 MEQ IV BOLUS ×4 (09:10→15:28)
[2021-12-23 09:17] LABS: Magnesium 1.5 mg/dL (1.6-2.6)
[2021-12-23] MEDS: Magnesium Chloride 64 MG Delay Rel.Tablet 128 MG PO (10:57)
[2021-12-23 12:20] LABS: Pathologist Review Reviewed
[2021-12-23 12:20] LABS: Pathologist Review Reviewed
[2021-12-23 12:20] LABS: Pathologist Review Reviewed
[2021-12-23] MEDS: oxyCODONE 5 MG Tablet PO (13:22)
--- NOTE | 2021-12-23 13:48 | CT_ITS ---
STUDY: CT ABDOMEN AND PELVIS WITH CONTRAST REASON FOR EXAM: Female, 66 years old. Pancreatitis RADIATION DOSAGE (If Supplied By Facility): CTDIvol = ( 19.39 ) mGy, DLP = ( 739.83 ) mGycm TECHNIQUE: Transaxial images were obtained from the dome of the diaphragm to the symphysis pubis without oral contrast. IV 100mL Isovue-300 was administered. Sagittal and coronal images were reconstructed. Individualized dose optimization techniques were used for this CT. COMPARISON: None. FINDINGS: Small bilateral pleural effusions with bibasilar atelectasis and/or infiltration. This is slightly worse on the left lung base. Corner artery calcification. Diffuse ascites. Peripancreatic fluid. Fluid is also seen in the paracolic gutters bilaterally and within the pelvis. There is a diffuse contour abnormality of the liver consistent with cirrhotic changes. Heterogeneous appearance of the peripheral aspect of the left lobe of the liver. An underlying mass lesion should be ruled out. There are surgical clips in the gallbladder fossa consistent with a prior cholecystectomy. Mild degree of central intrahepatic biliary ductal dilatation. The common bile duct is dilated measuring 10.4 mm. There is a 1.3 cm calcified granuloma in the inferior aspect of the spleen. Dilated pancreatic duct. Heterogeneous appearance of the head and uncinate process of the pancreas with several small cystic areas suggestive of small pseudocysts. Edematous changes are seen in the peripancreatic region especially in the head and uncinate process. This extends into the root of the mesentery. Intraluminal filling defects are seen in the superior mesenteric vein suggestive of a mesenteric venous thrombosis. Normal bilateral adrenal glands. Normal right kidney. There is a 1.3 cm fat-containing nodule in the upper pole of the left kidney suggestive of angiomyolipoma. Normal visualized stomach. Normal small intestine. Normal colon. The appendix is visualized and appears normal. There is scattered atherosclerotic calcification of the abdominal aorta, without a demonstrated aneurysm. Normal inferior vena cava. Normal retroperitoneum. Normal urinary bladder. There is absence of the uterus consistent with a prior hysterectomy. Normal abdominal wall. There are degenerative changes of the visualized lumbar spine. CT/Abdomen/Pelvis W IV Cont ONLY IMPRESSION: Diffuse pancreatitis with findings suggestive of a pseudocyst in the region of the head and uncinate process of the pancreas. Status post cholecystectomy with intrahepatic biliary ductal dilatation. Heterogeneous appearance of the liver in the posterior aspect of the right lobe as well as the left lobe. The results were communicated to the referring physician. Superior mesenteric venous thrombosis. Electronically Signed: Rob Russo MD at 15:24 EDT ,
--- NOTE | 2021-12-23 13:49 | PN_ITS ---
Subjective Subjective Patient is seen this morning with the daughter at the bedside. She still having a lot of abdominal pain and not able to really eat much. She denies any fevers. She has been having bowel movements. Objective Data Objective Data Vital Signs: Vital Signs Temp Pulse Resp BP Pulse Ox 97.9 F 84 16 111/64 95 12/23/21 08:35 12/23/21 08:37 12/23/21 08:35 12/23/21 08:37 12/23/21 08:35 Oxygen Delivery Method Room Air Weight: 145 lb 15.136 oz Body Mass Index (BMI) 26.6 Intake & Output: Intake and Output for Last 24 Hours 12/21/21 12/22/21 12/23/21 23:59 23:59 23:59 Intake Total 1150 / 1150 1170.00 / 1170.00 500 / 500 Balance 1150 / 1150 1170.00 / 1170.00 500 / 500 Medical Nutrition Assessment Dietitian: Malnutrition Criteria Met Start: 12/20/21 14:22 Freq: Status: Active Protocol: Document 12/20/21 14:22 (Rec: 12/20/21 14:22 [id number]) Nutrition Malnutrition Evidence of Malnutrition Exists Yes Malnutrition (severe): Chronic Evidenced By Suboptimal Energy Intake ( Severe),Weight Loss (Severe) Clinical Problem Chronic Disease or Condition Related Malnutrition Etiology severe, chronic malnutrition related to inadequate oral intake d/t GI dysfunction Signs/Symptoms as evidenced by unintentional wt loss of 36.1#/20% wt loss x 5 months, estimated PO intake meeting <75% of estimated energy needs >3 months Status Active Problem Recommendation Dietitian Recommendations/Changes recommend advance diet as tolerated to regular, low fat; will adjust Ensure to Ensure Clear 120mL 4x/day d/t malnutrition and current clear liquid diet order. Lab / Micro Data Result Diagrams: 12/23/21 05:48 12/23/21 05:48 Labs: Laboratory Results - last 24 hr 12/21/21 05:27: Diff Path Review Reviewed 12/22/21 05:36: Diff Path Review Reviewed 12/22/21 13:42: Ammonia 15.0 12/23/21 05:48: WBC 22.7 H, RBC 2.66 L, Hgb 9.2 L, Hct 26.9 L, MCV 101.1 H, MCH 34.6 H, MCHC 34.2 D, RDW Std Deviation 59.2 H, RDW Coeff of [place] 16.7 H, Plt Count 240, MPV 10.6, Immature Gran % (Auto) 4.700 H, Neut % (Auto) 78.7 H, Lymph % (Auto) 6.1 L, [place] % (Auto) 9.2, Eos % (Auto) 0.9, Baso % (Auto) 0.4, Absolute Neuts (auto) 17.9 H, Absolute Lymphs (auto) 1.39, Nucleated RBC % 0, Diff Path Review Reviewed, Anisocytosis 1+ 12/23/21 05:48: Sodium 133 L, Potassium 2.7 L*, Chloride 101, Carbon Dioxide 21.0, Anion Gap 11, BUN 30 H, Creatinine 0.73, Estim Creat Clear Calc 43.18, Est GFR (MDRD) Af Amer 102, Est GFR (MDRD) Non-Af 84, BUN/Creatinine Ratio 40.9 H, Glucose 105, Calcium 8.4 L, Total Bilirubin 3.00 H, AST 57 H, ALT 46, Alkaline Phosphatase 168 H, Total Protein 7.0, Albumin 1.9 L, Globulin 5.1 H, Albumin/Globulin Ratio 0.4 L 12/23/21 05:48: Magnesium 1.5 L Micro: Microbiology 12/20/21 05:55 Urine, Clean Catch Urine Culture - Final Yeast 12/20/21 04:16 Blood Culture (Wb) - Anticubital Left Blood Culture - Preliminary No growth in 48 hours. 12/20/21 03:57 Blood Culture (Wb) - Anticubital Left Blood Culture - Preliminary No growth in 48 hours. Physical Exam Narrative GENERAL: cooperative HEENT: Atraumatic; EYES; Anicteric, Normal Conjunctiva NECK; supple, normal thyroid, RESPIRATORY: Diminished to auscultation CARDIOVASCULAR: Regular S1 S2, GI: soft, normoactive bowel sounds, : No Renal angle tenderness; EXTREMITIES: No edema, no clubbing, MUSCULOSKELETAL: no muscle wasting NEURO: Awake; no lateralizing signs. SKIN: No Rash PSYCH; Flat affect Assessment & Plan Assessment/Plan (1) Encephalopathy: PLAN: Encephalopathy seems to have resolved. Continue Xifaxan and lactulose therapy. (2) Cirrhosis: PLAN: She is still decompensated and regarding her alcoholic cirrhosis. Her hepatic profile did not show any signs of chronic hepatitis C or chronic hepatitis B. Labs are waiting in regarding possible underlying autoimmune disease such as hemochromatosis, autoimmune hepatitis, primary biliary cirrhosis or primary sclerosing cholangitis (3) Ascites: PLAN: On if her CT scan does show ascites then she would need a diagnostic or th erapeutic paracentesis and to test the amylase level along with cytology and culture (4) Severe protein-calorie malnutrition: PLAN: Continue to encourage p.o. intake.
--- NOTE | 2021-12-23 14:34 | CON.PCM.ID_ITS ---
Assessment & Plan Assessment/Plan (1) Encephalopathy: (2) Cirrhosis: (3) Leukocytosis: PLAN: No fever, no necrosis/abscess seen on MRI. CT pending from this afternoon. Encephalopathy improved. Hep studies neg 06/2021. Will keep zosyn going while eval for SBP is pending. Will follow, thank you. (4) Pancreatitis: HPI Consult Data Date of Consult: 12/23/21 HPI Narrative Reason for Consultation: leukocytosis HPI Narrative: CALIN ANGUIANO, is a 66 F who presented 12/20 from [place] ED with about 2 weeks up upper abd pain, worse with food. Has h/o etoh abuse. No fever or chills. Some nausea/vomiting. Came here, MRCP done, seen by GI, on empiric zosyn. Feeling a little better, diet was advanced. Mental status is better. Full ROS performed and neg except as noted above. [facility] Medical History Abdominal aortic aneurysm without rupture Acute ST elevation myocardial infarction (STEMI) Alcohol abuse Atherosclerotic heart disease of [place] coronary artery without angina pectoris Bone fracture Breast lump Carpal tunnel syndrome Depression Essential hypertension Fibromyalgia Former smoker Gait instability [place] GERD (gastroesophageal reflux disease) Hearing loss, left Hearing loss, right Hearing problem Hx of cataract IBS (irritable bowel syndrome) Liver disease Mixed hyperlipidemia Paroxysmal supraventricular tachycardia Presence of stent in coronary artery (~12/28/16) Rheumatoid arthritis Skin cancer Sleep apnea UTI (urinary tract infection) Home Medications aspirin 81 mg tablet,delayed release 81 mg PO DAILY health maintenance 02/12/17 [History Last Taken 12/19/21] metoprolol tartrate 25 mg tablet 25 mg PO BID blood pressure/heart 02/12/17 [History Last Taken 12/19/21] nitroglycerin 0.4 mg sublingual tablet 0.4 mg sublingual PRN PRN Cardiac/Chest Pain 02/12/17 [History Last Taken Unknown] omeprazole 20 mg capsule,delayed release 20 mg PO DAILY gerd 02/12/17 [History Last Taken 12/19/21] cyclobenzaprine 10 mg tablet 10 mg PO TID 12/12/21 [History Last Taken 12/19/21] duloxetine 30 mg capsule,delayed release 30 mg PO QHS #30 caps 12/12/21 [Rx Last Taken 12/19/21] duloxetine 60 mg capsule,delayed release 60 mg PO QAM #30 caps 12/12/21 [Rx Last Taken 12/19/21] etanercept 25 mg/0.5 mL subcutaneous solution (Enbrel) 25 mg subcut QWEEK 12/12/21 [History Last Taken 12/18/21] left wrist splint #1 ea 12/12/21 [Rx Last Taken Unknown] right wrist splint #1 ea 12/12/21 [Rx Last Taken Unknown] Allergy/AdvReac Type Severity Reaction Status Date / Time naproxen Allergy Unknown Verified 12/20/21 02:15 oxaprozin [From Daypro] Allergy Unknown Verified 12/20/21 02:15 Family History Mother Hypertension Other Heart disease Surgical History H/O lumpectomy History of arthroscopic surgery of shoulder History of carpal tunnel surgery History of cholecystectomy History of coronary artery stent placement History of tonsillectomy History of total hysterectomy Hx of section Hx of total knee replacement Presence of coronary angioplasty implant and graft (~12/28/16) S/P right knee arthroscopy S/P trigger finger release Social History Smoking Status: Former smoker how long ago did patient quit smokin alcohol intake: current alcohol intake frequency: 0-2 drinks per day Alcohol type: wine substance use type: does not use caffeine: Yes Type: coffee Number of servings: 1 what type of physical activity do you participate in: walking and weight training frequency: 3-4 times per week duration: 45-60 minutes/day seatbelt use: always do you feel safe at home: Yes Physical Exam Const alert and no apparent distress General Appearance: cooperative HEENT normocephalic Eyes PERRL and EOMs intact bilaterally Neck No nodes Resp normal air movement and clear to auscultation bilaterally Cardio regular rate and regular rhythm GI soft to palpation GI Narrative: mild soreness and distension Skin no rashes or lesions noted Neuro CN's II-XII intact bilaterally Medical Records Data Medical Nutrition Assessment Dietitian: Malnutrition Criteria Met Start: 12/20/21 14:22 Freq: Status: Active Protocol: Document 12/23/21 14:30 RMA (Rec: 12/23/21 14:30 [id number]) Nutrition Malnutrition Evidence of Malnutrition Exists Yes Malnutrition (severe): Chronic Evidenced By Suboptimal Energy Intake ( Severe),Weight Loss (Severe) Clinical Problem Chronic Disease or Condition Related Malnutrition Etiology severe, chronic malnutrition related to inadequate oral intake d/t GI dysfunction Signs/Symptoms as evidenced by unintentional wt loss of 36.1#/20% wt loss x 5 months, estimated PO intake meeting <75% of estimated energy needs >3 months Status Active Problem Recommendation Dietitian Recommendations/Changes Will adjust diet to regular, low fat, no added salt. Will adjust medpass from Ensure Clear 120mL 4x/day to Ensure Enlive d/t malnutrition since diet advanced from clear liquids to solids at this time. Lab / Micro Data Attestation: I reviewed the patient's lab results. Result Diagrams: 12/23/21 05:48 12/23/21 05:48 Labs: Laboratory Results - last 24 hr 12/21/21 05:27: Diff Path Review Reviewed 12/22/21 05:36: Diff Path Review Reviewed 12/23/21 05:48: WBC 22.7 H, RBC 2.66 L, Hgb 9.2 L, Hct 26.9 L, MCV 101.1 H, MCH 34.6 H, MCHC 34.2 D, RDW Std Deviation 59.2 H, RDW Coeff of [place] 16.7 H, Plt Count 240, MPV 10.6, Immature Gran % (Auto) 4.700 H, Neut % (Auto) 78.7 H, Lymph % (Auto) 6.1 L, [place] % (Auto) 9.2, Eos % (Auto) 0.9, Baso % (Auto) 0.4, Absolute Neuts (auto) 17.9 H, Absolute Lymphs (auto) 1.39, Nucleated RBC % 0, Diff Path Review Reviewed, Anisocytosis 1+ 12/23/21 05:48: Sodium 133 L, Potassium 2.7 L*, Chloride 101, Carbon Dioxide 21.0, Anion Gap 11, BUN 30 H, Creatinine 0.73, Estim Creat Clear Calc 43.18, Est GFR (MDRD) Af Amer 102, Est GFR (MDRD) Non-Af 84, BUN/Creatinine Ratio 40.9 H, Glucose 105, Calcium 8.4 L, Total Bilirubin 3.00 H, AST 57 H, ALT 46, Alkaline Phosphatase 168 H, Total Protein 7.0, Albumin 1.9 L, Globulin 5.1 H, Albumin/Globulin Ratio 0.4 L 12/23/21 05:48: Magnesium 1.5 L Micro: Microbiology 12/20/21 05:55 Urine, Clean Catch Urine Culture - Final Yeast
[2021-12-23 14:48] VITALS: BP 107/52; PULSE 80; RESP 16; TEMP 36.8; O2SAT 97
--- NOTE | 2021-12-23 15:29 | CHAPLAIN ---
Type of Pastoral Visit _x__ Initial Visit ___ Follow-up Visit ___ On-call Visit ___ General Patient Visit ___ Spiritual Assessment ___ Family Conference ___ Bereavement ___ Rapid Response ___ Code Blue ___ Other (describe below) Pastoral Care Referral From ___ Patient _x__ Family ___ Nurse ___ Physician ___ Paint Dipper ___ Upholstery Tech ___ Other (describe below) Sacrament/Intervention _x__ Active listening ___ Anointing ___ Methodist ___ Bereavement ___ Communion ___ Tania exploration ___ ___ Life review _x__ Prayer ___ Reconciliation ___ Sacrament of Sick _x__ Supportive presence ___ Wedding ___ Other (describe below) Pastoral Comments introduced self and role to patient; family member requested visit; pt is welcoming and expresses thanks for stopping in to see her; offer of support and encouragement; pt goal is for pain to decrease and to get home again; pt accepts prayer and presence but does not get specific about any requests for self; daughter and granddaughter in room at this time too
--- NOTE | 2021-12-23 16:55 | PCM.PROGNOTE ---
Subjective Subjective Patient still having some abdominal pain. She just got back from CT scan of the abdomen pelvis. Objective Data Objective Data Vital Signs: Vital Signs Temp Pulse Resp BP Pulse Ox 98.3 F 80 16 107/52 L 97 12/23/21 14:48 12/23/21 14:48 12/23/21 14:48 12/23/21 14:48 12/23/21 14:48 Oxygen Delivery Method Room Air Weight: 145 lb 15.136 oz Body Mass Index (BMI) 26.6 Intake & Output: Intake and Output for Last 24 Hours 12/21/21 12/22/21 12/23/21 23:59 23:59 23:59 Intake Total 1150 / 1150 1170.00 / 1170.00 600 / 600 Balance 1150 / 1150 1170.00 / 1170.00 600 / 600 Medical Nutrition Assessment Dietitian: Malnutrition Criteria Met Start: 12/20/21 14:22 Freq: Status: Active Protocol: Document 12/23/21 14:30 RMA (Rec: 12/23/21 14:30 RMA [id number]) Nutrition Malnutrition Evidence of Malnutrition Exists Yes Malnutrition (severe): Chronic Evidenced By Suboptimal Energy Intake ( Severe),Weight Loss (Severe) Clinical Problem Chronic Disease or Condition Related Malnutrition Etiology severe, chronic malnutrition related to inadequate oral intake d/t GI dysfunction Signs/Symptoms as evidenced by unintentional wt loss of 36.1#/20% wt loss x 5 months, estimated PO intake meeting <75% of estimated energy needs >3 months Status Active Problem Recommendation Dietitian Recommendations/Changes Will adjust diet to regular, low fat, no added salt. Will adjust medpass from Ensure Clear 120mL 4x/day to Ensure Enlive d/t malnutrition since diet advanced from clear liquids to solids at this time. Lab / Micro Data Result Diagrams: 12/23/21 05:48 12/23/21 05:48 Labs: Laboratory Results - last 24 hr 12/21/21 05:27: Diff Path Review Reviewed 12/22/21 05:36: Diff Path Review Reviewed 12/23/21 05:48: WBC 22.7 H, RBC 2.66 L, Hgb 9.2 L, Hct 26.9 L, MCV 101.1 H, MCH 34.6 H, MCHC 34.2 D, RDW Std Deviation 59.2 H, RDW Coeff of [place] 16.7 H, Plt Count 240, MPV 10.6, Immature Gran % (Auto) 4.700 H, Neut % (Auto) 78.7 H, Lymph % (Auto) 6.1 L, [place] % (Auto) 9.2, Eos % (Auto) 0.9, Baso % (Auto) 0.4, Absolute Neuts (auto) 17.9 H, Absolute Lymphs (auto) 1.39, Nucleated RBC % 0, Diff Path Review Reviewed, Anisocytosis 1+ 12/23/21 05:48: Sodium 133 L, Potassium 2.7 L*, Chloride 101, Carbon Dioxide 21.0, Anion Gap 11, BUN 30 H, Creatinine 0.73, Estim Creat Clear Calc 43.18, Est GFR (MDRD) Af Amer 102, Est GFR (MDRD) Non-Af 84, BUN/Creatinine Ratio 40.9 H, Glucose 105, Calcium 8.4 L, Total Bilirubin 3.00 H, AST 57 H, ALT 46, Alkaline Phosphatase 168 H, Total Protein 7.0, Albumin 1.9 L, Globulin 5.1 H, Albumin/Globulin Ratio 0.4 L 12/23/21 05:48: Magnesium 1.5 L Micro: Microbiology 12/20/21 05:55 Urine, Clean Catch Urine Culture - Final Yeast 12/20/21 04:16 Blood Culture (Wb) - Anticubital Left Blood Culture - Preliminary No growth in 48 hours. 12/20/21 03:57 Blood Culture (Wb) - Anticubital Left Blood Culture - Preliminary No growth in 48 hours. Radiography Diagnostic Testing: Radiology Impression Abdomen/Pelvis CT 12/23/21 13:48 IMPRESSION: Diffuse pancreatitis with findings suggestive of a pseudocyst in the region of the head and uncinate process of the pancreas. Status post cholecystectomy with intrahepatic biliary ductal dilatation. Heterogeneous appearance of the liver in the posterior aspect of the right lobe as well as the left lobe. The results were communicated to the referring physician. Superior mesenteric venous thrombosis. 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 She will need to be transferred to a higher level of care for management of severe pancreatitis with the development of splenic vein thrombosis and likely need for anticoagulation or intervention by interventional radiology (2) Cirrhosis: PLAN: Decompensated cirrhosis with acute pancreatitis and ascites possibly secondary to pancreatitis and portal hypertension. She will need to undergo an EGD and see if there are any signs of varices prior to anticoagulation. (3) Ascites: PLAN: She did not undergo paracentesis today due to splenic vein thrombosis and other comorbidities. (4) Pancreatitis: PLAN: Severe acute on chronic pancreatitis. CT scan abdomen pelvis did see some chronic changes secondary to pancreatitis with a dilated pancreatic duct and some chronic changes in the pancreas consistent with chronic pancreatitis. Continue IV fluids and she can have clear liquids for now. Charges/Coding Visit Charges Inpatient E&M: 02766 Subs Hosp L3
--- NOTE | 2021-12-23 17:03 | PCM.HOSP.N ---
Hospitalist Note Did receive a call from Dr. Resendez regarding patient CT of the abdomen findings Diffuse pancreatitis with findings suggestive of a pseudocyst in the region of the head and uncinate process of the pancreas.Status post cholecystectomy with intrahepatic biliary ductal dilatation.Heterogeneous appearance of the liver in the posterior aspect of the right lobe as well as the left lobe. Superior mesenteric venous thrombosis. Decision was made to transfer patient to a facility with interventional radiology capabilities. Call has been placed to [facility] for transfer awaiting response of acceptance
--- NOTE | 2021-12-23 17:15 | DS.PCM_ITS ---
Providers Date of Admission: 12/20/21 Primary Care Physician: Dr. Jany Gilliam, Consultations 12/20/21 03:10 Consult: Gastroenterology Routine Consulting Provider: [facility] Reason for Consult: pancreatitis EMERGENT Consult: No Notified: Yes Date Notified: 12/20/21 Time Notified: 02:49 Method of Notification: Verbal 12/22/21 13:07 Consult: Infectious Disease Routine Consulting Provider: Bonifacio Adames Reason for Consult: leukocytosis EMERGENT Consult: No Notified: Yes Date Notified: 12/22/21 Time Notified: 06:33 Method of Notification: Text Reason For Visit: PANCREATITIS, FAMILIA Diagnosis Discharge Diagnosis (1) Splenic vein thrombosis: Status: Acute Code(s): I82.890 - Acute embolism and thrombosis of other specified veins (2) Cirrhosis: Status: Acute Code(s): K74.60 - Unspecified cirrhosis of liver (3) Ascites: Status: Acute Code(s): R18.8 - Other ascites (4) Pancreatitis: Status: Acute Code(s): K85.90 - Acute pancreatitis without necrosis or infection, unspecified Plan Patient is a 66-year-old lady admitted with epigastric discomfort found to have elevated lipase levels consistent with acute pancreatitis 1. Acute pancreatitis ? Secondary to alcohol use admitted to regular nursing floor for conservative management with pain meds IV fluid with consultation placed to GI 2. Toxic metabolic encephalopathy ? Secondary to cirrhosis of the liver. Managed with lactulose 3. Persistent leukocytosis ? Monitoring so far no obvious source of infection 4. Hypokalemia -Corrected per protocol 5. Mild hyponatremia ? On IV fluid with monitoring 6. Acute kidney injury ? Managed with IV fluids kidney function back to baseline 7. Anemia - Secondary to chronic disorder monitoring H&H and transfuse if patient becomes symptomatic or hemoglobin falls below 7 8. Depression ? Patient is on Cymbalta 9. Severe caloric and protein malnutrition r -elated to inadequate oral intake as evidenced by unintentional weight loss of 36.1 pounds over 5 months, estimated p.o. intake meeting less than 75% of estimated energy needs over 3 months-patient will be placed on a regular diet as tolerated, Ensure clear will be given 4 times a day 10. Hypomagnesemia ? Corrected per protocol, subsequent monitoring with repeat magnesium in a.m. ordered Medications at Discharge Home Medications aspirin 81 mg tablet,delayed release 81 mg PO DAILY health maintenance 02/12/17 metoprolol tartrate 25 mg tablet 25 mg PO BID blood pressure/heart 02/12/17 nitroglycerin 0.4 mg sublingual tablet 0.4 mg sublingual PRN PRN Cardiac/Chest Pain 02/12/17 omeprazole 20 mg capsule,delayed release 20 mg PO DAILY gerd 02/12/17 cyclobenzaprine 10 mg tablet 10 mg PO TID 12/12/21 duloxetine 30 mg capsule,delayed release 30 mg PO QHS #30 caps 12/12/21 duloxetine 60 mg capsule,delayed release 60 mg PO QAM #30 caps 12/12/21 etanercept 25 mg/0.5 mL subcutaneous solution (Enbrel) 25 mg subcut QWEEK 12/12/21 left wrist splint #1 ea 12/12/21 right wrist splint #1 ea 12/12/21 Hospital Course Operations None Summary of Care Provided Minutes Spent on Discharge: 40 Hospital Course: Patient is a 66-year-old lady admitted with epigastric discomfort found to have elevated lipase levels consistent with acute pancreatitis 1.? Acute pancreatitis ? Secondary to alcohol use admitted to regular nursing floor for conservative management with pain meds IV fluid with consultation placed to GI -Patient was seen in consultation by Dr. Resendez who requested for CT of the abdomen which did show Diffuse pancreatitis with findings suggestive of a pseudocyst in the region of the head and uncinate process of the pancreas.Status post cholecystectomy with intrahepatic biliary ductal dilatation.Heterogeneous appearance of the liver in the posterior aspect of the right lobe as well as the left lobe. Superior mesenteric venous thrombosis. Decision was made to transfer patient to a facility with interventional radiology capabilities.? Call has been [facility] to [facility]; patient was accepted for transfer 2.? Toxic metabolic encephalopathy ? Secondary to cirrhosis of the liver.? Managed with lactulose 3.? Persistent leukocytosis ? Monitoring so far no obvious source of infection 4.? Hypokalemia -Corrected per protocol 5.? Mild hyponatremia ? On IV fluid with monitoring 6.? Acute kidney injury ? Managed with IV fluids kidney function back to baseline 7.? Anemia - Secondary to chronic disorder monitoring H&H and transfuse if patient becomes symptomatic or hemoglobin falls below? 7 8.? Depression ? Patient is on Cymbalta 9. Severe caloric and protein malnutrition r -elated to inadequate oral intake as evidenced by unintentional weight loss of 36.1 pounds over 5 months, estimated p.o. intake meeting less than 75% of estimated energy needs over 3 months-patient will be placed on a regular diet as tolerated, Ensure clear will be given 4 times a day 10.? Hypomagnesemia ? Corrected per protocol, Physical Exam Narrative GENERAL: cooperative HEENT: Atraumatic; EYES; Anicteric, Normal Conjunctiva NECK; supple, normal thyroid, RESPIRATORY: Diminished to auscultation CARDIOVASCULAR:? Regular S1 S2, GI:? soft, normoactive bowel sounds, : No Renal angle tenderness; EXTREMITIES:? No edema, no clubbing, MUSCULOSKELETAL:? no muscle wasting NEURO:? Awake;? no lateralizing signs. SKIN:? No Rash PSYCH; Flat? affect Medical Records Data Medical Nutrition Assessment Dietitian: Malnutrition Criteria Met Start: 12/20/21 14:22 Freq: Status: Active Protocol: Document 12/23/21 14:30 RMA (Rec: 12/23/21 14:30 RMA [id number]) Nutrition Malnutrition Evidence of Malnutrition Exists Yes Malnutrition (severe): Chronic Evidenced By Suboptimal Energy Intake ( Severe),Weight Loss (Severe) Clinical Problem Chronic Disease or Condition Related Malnutrition Etiology severe, chronic malnutrition related to inadequate oral intake d/t GI dysfunction Signs/Symptoms as evidenced by unintentional wt loss of 36.1#/20% wt loss x 5 months, estimated PO intake meeting <75% of estimated energy needs >3 months Status Active Problem Recommendation Dietitian Recommendations/Changes Will adjust diet to regular, low fat, no added salt. Will adjust medpass from Ensure Clear 120mL 4x/day to Ensure Enlive d/t malnutrition since diet advanced from clear liquids to solids at this time. Weight / BMI Weight Weight: 66.2 kg Body Mass Index (BMI) 26.6 ABG / Lab / Microbiology Data Result Diagrams: 12/23/21 05:48 12/23/21 05:48 Laboratory: Laboratory Results - last 24 hr 12/21/21 05:27: Diff Path Review Reviewed 12/22/21 05:36: Diff Path Review Reviewed 12/23/21 05:48: WBC 22.7 H, RBC 2.66 L, Hgb 9.2 L, Hct 26.9 L, MCV 101.1 H, MCH 34.6 H, MCHC 34.2 D, RDW Std Deviation 59.2 H, RDW Coeff of [place] 16.7 H, Plt Count 240, MPV 10.6, Immature Gran % (Auto) 4.700 H, Neut % (Auto) 78.7 H, Lymph % (Auto) 6.1 L, [place] % (Auto) 9.2, Eos % (Auto) 0.9, Baso % (Auto) 0.4, Absolute Neuts (auto) 17.9 H, Absolute Lymphs (auto) 1.39, Nucleated RBC % 0, Diff Path Review Reviewed, Anisocytosis 1+ 12/23/21 05:48: Sodium 133 L, Potassium 2.7 L*, Chloride 101, Carbon Dioxide 21.0, Anion Gap 11, BUN 30 H, Creatinine 0.73, Estim Creat Clear Calc 43.18, Est GFR (MDRD) Af Amer 102, Est GFR (MDRD) Non-Af 84, BUN/Creatinine Ratio 40.9 H, Glucose 105, Calcium 8.4 L, Total Bilirubin 3.00 H, AST 57 H, ALT 46, Alkaline Phosphatase 168 H, Total Protein 7.0, Albumin 1.9 L, Globulin 5.1 H, Albumin/Globulin Ratio 0.4 L 12/23/21 05:48: Magnesium 1.5 L Microbiology: Microbiology 12/20/21 05:55 Urine, Clean Catch Urine Culture - Final Yeast 12/20/21 04:16 Blood Culture (Wb) - Anticubital Left Blood Culture - Preliminary No growth in 48 hours. 12/20/21 03:57 Blood Culture (Wb) - Anticubital Left Blood Culture - Preliminary No growth in 48 hours. Radiography Diagnostic Testing: Radiology Impression Abdomen/Pelvis CT 12/23/21 13:48 IMPRESSION: Diffuse pancreatitis with findings suggestive of a pseudocyst in the region of the head and uncinate process of the pancreas. Status post cholecystectomy with intrahepatic biliary ductal dilatation. Heterogeneous appearance of the liver in the posterior aspect of the right lobe as well as the left lobe. The results were communicated to the referring physician. Superior mesenteric venous thrombosis. Electronically Signed: Rob Russo MD at 15:24 EDT , D/C Instructions Discharge Diet: No restrictions Meaningful Use Info Meaningful Use Diagnoses (Choose all that apply): None applicable Discharge Plan Admission Admit Date/Time: 12/20/21 02:45 Attending Provider: Brian Wilde Primary Care Provider: Jany Gilliam Consulting Providers: Rolando Lares ; Bonifacio Adames ; Mckinley Sherman Discharge Orders/Prescriptions Prescriptions: No Action (DME) left wrist splint See Rx Instructions .Route .MEDSUPPLY Qty: 1 0RF Rx Instructions: wear nightly G56.03 - Carpal tunnel syndrome, bilateral upper limbs (DME) right wrist splint See Rx Instructions .Route .MEDSUPPLY Qty: 1 0RF Rx Instructions: wear nightly G56.03 - Carpal tunnel syndrome, bilateral upper limbs cyclobenzaprine 10 mg tablet 10 mg PO TID Rx Instructions: for 7 days Enbrel 25 mg/0.5 mL solution 25 mg subcut QWEEK Rx Instructions: every thu duloxetine 30 mg capsule,delayed release(DR/EC) 30 mg PO QHS Qty: 30 3RF duloxetine 60 mg capsule,delayed release(DR/EC) 60 mg PO QAM Qty: 30 3RF aspirin 81 MG tablet,delayed release (DR/EC) 81 mg PO DAILY nitroglycerin 0.4 MG tablet, sublingual 0.4 mg sublingual PRN PRN (Reason: Cardiac/Chest Pain) omeprazole 20 MG capsule 20 mg PO DAILY metoprolol tartrate 25 MG tablet 25 mg PO BID Referrals / Follow Up: Jany Gilliam DO [Primary Care Provider] - Within 2 Weeks Disposition Disposition (needs filled in before D/C Order can be placed): Acute Care Hospital Charges/Coding Visit Charges Inpatient E&M: 10407 Disch Hosp
[2021-12-23 17:26] VITALS: BP 111/66; PULSE 94; RESP 16; TEMP 36.2; O2SAT 94
[2021-12-23] MEDS: Potassium Chloride Oral Tablet 20 MEQ PO (17:40)
[2021-12-23] MEDS: 0.9% Normal Saline 1,000 ML 75 ML IV (18:59)
== END 2021-12-23 19:25 | disposition short-term general hospital (02) | DRG 438 ==
PROVIDERS: Internal Medicine; PCP Family Medicine; Visit Provider Internal Medicine
DX: K85.20 Alcohol induced acute pancreatitis without necrosis or infection (principal); K86.0 Alcohol-induced chronic pancreatitis; K70.31 Alcoholic cirrhosis of liver with ascites; K76.7 Hepatorenal syndrome; K76.6 Portal hypertension; E43 Unspecified severe protein-calorie malnutrition; G92.8 Other toxic encephalopathy; F10.288 Alcohol dependence with other alcohol-induced disorder; I82.890 Acute embolism and thrombosis of other specified veins; N17.9 Acute kidney failure, unspecified; E87.1 Hypo-osmolality and hyponatremia; E87.6 Hypokalemia; E83.42 Hypomagnesemia; I25.10 Atherosclerotic heart disease of native coronary artery without angina pectoris; M06.9 Rheumatoid arthritis, unspecified; D50.9 Iron deficiency anemia, unspecified; E78.2 Mixed hyperlipidemia; M79.7 Fibromyalgia; H91.93 Unspecified hearing loss, bilateral; F32.A Depression, unspecified; Z68.26 Body mass index [BMI] 26.0-26.9, adult; I25.2 Old myocardial infarction; Z79.82 Long term (current) use of aspirin; Z87.891 Personal history of nicotine dependence; Z95.5 Presence of coronary angioplasty implant and graft
CPT/HCPCS: 36415; 70450; 74177; 74181; 76770; 80053; 81001; 82140; 82570; 83540; 83550; 83690; 83735; 84300; 84443; 85025; 85610; 87040; 87086; 87088; 97110; 97162; 97166; 97530; 97802; 97803; J7030; J7040; J7050; Q9967; A4216; J2916